=== PATIENT | female | born 1945 | race Caucasian/White ===

== ENCOUNTER → 2016-06-26 | Outpatient (CLI) | payer OTHER ==
[~2016-06-26] MED LIST: ACET-1138 PO; ALBINS INH; ALBU1AER9 INH; AMLO-110 PO; ASPEC325 PO; AUG0.05O4 TOP; BUPRTAB51 PO; CALCTAB5 PO; CARB100C2 PO; CHOL1000 PO; CLB100 PO; FRRG PO; HYZ/50125 PO; LORA-741 PO; MELA1TAB5 PO; OMEP40CA PO; PROLIA INJ; SPIR25TA PO; SYN100 PO; ULT50X PO
[2016-06-26 13:03] LABS: BASO ABS # 0.06 K/uL (0-0.2); COMPLETE YES; EOS % 4.4 %; HEMATOCRIT 37.2 % (37-47); IG% 0.2 %; LYMPH % 27.5 %; LYMPH ABS # 1.62 K/uL (1.2-3.4); MEAN CORPUSCULAR HEMOGLOBIN 30.9 pg (25-34); MEAN CORPUSCULAR HGB CONC 34.7 g/dl (32-36); MEAN PLATELET VOLUME 8.4 fL (7.4-10.4); MONO % 10.8 %; NEUT % 56.1 %; PLATELET COUNT 365 K/uL (130-400); RED BLOOD COUNT 4.18 M/uL (4.2-5.4)
[2016-06-26 13:15] LABS: ALT/SGPT 14 U/L (12-78); BLOOD UREA NITROGEN 17 mg/dl (7-18); BUN/CREATININE RATIO 22.1 (10-20); CALCIUM 9.2 mg/dl (8.5-10.1); CARBON DIOXIDE 26 mmol/L (21-32); CHLORIDE 98 mmol/L (98-107); CREATININE 0.77 mg/dl (0.60-1.20); GLUCOSE 80 mg/dl (70-99); POTASSIUM 3.4 mmol/L (3.5-5.1); SODIUM 134 mmol/L (136-145)
[2016-06-26 13:16] LABS: ALB/GLOB RATIO 1.1 (0.9-2); ALKALINE PHOSPHATASE 76 U/L (45-117); AST/SGOT 12 U/L (15-37)
== END | disposition home or self-care (01) ==
LOC: C.LABPBG 09:30
PROVIDERS: ATTEND Psychiatry & Neurology Neurology
DX: G40.209 Localization-related (focal) (partial) symptomatic epilepsy and epileptic syndromes with complex partial seizures, not intractable, without status epilepticus (principal)

== ENCOUNTER → 2016-12-28 | Outpatient (CLI) | payer OTHER | END | disposition home or self-care (01) | LOC: C.LABPBG 08:11 | PROVIDERS: ATTEND Psychiatry & Neurology Neurology | DX: R56.9 Unspecified convulsions (principal) ==

== ENCOUNTER 2017-03-26 10:53 | Emergency (ER) | payer OTHER ==
[~2017-03-26] VITALS: Ht 162.6 cm; Wt 68.1 kg
[2017-03-26 10:54] VITALS: TEMP 36.6; Ht 162.6 cm; Wt 68.1 kg
[2017-03-26] MEDS ORDERED: LEVO50TA PO (11:16)
[2017-03-26] MEDS ORDERED: SPR25 PO (11:16)
[2017-03-26] MEDS ORDERED: ALBINS/ INH (11:16)
[2017-03-26] MEDS ORDERED: BUPR-83 PO (11:16)
[2017-03-26] MEDS ORDERED: CALC600T37 PO (11:16)
[2017-03-26] MEDS ORDERED: ASPI81TA28 PO (11:16)
[2017-03-26] MEDS ORDERED: OMEP40CA41 PO (11:16)
[2017-03-26] MEDS ORDERED: ALBU18002 INH (11:16)
[2017-03-26] MEDS ORDERED: MELA3TAB PO (11:16)
[2017-03-26] MEDS ORDERED: AMLO-110 PO (11:16)
[2017-03-26] MEDS ORDERED: SYN100 PO (11:16)
[2017-03-26] MEDS ORDERED: CELE100C PO (11:16)
[2017-03-26] MEDS ORDERED: LOSA100T33 PO (11:16)
[2017-03-26] MEDS ORDERED: TGR100 PO (11:16)
--- NOTE | 2017-03-26 11:46 | DIAGNOSTIC IMAGING REPORT ---
L FEMUR 2 VIEWS ROUTINE CLINICAL HISTORY: Left femur pain status post trauma COMPARISON: Left hip x-ray performed the same day DISCUSSION: There are postsurgical changes of a total left knee arthroplasty. No acute fractures or dislocations are visualized. IMPRESSION: No acute fractures identified. Electronically signed by: Ramiro Pittman M.D. 03/26/2017 11:45 AM Dictated Date/Time: 03/26/2017 11:44 AM
--- NOTE | 2017-03-26 11:49 | DIAGNOSTIC IMAGING REPORT ---
PELVIS 1 OR 2 VIEW ROUTINE, L HIP UNILATERAL 2 VIEWS HISTORY: 71 years-old Female left pelvis pain s/p fall acute pelvic pain status post fall, most pronounced in the left COMPARISON: Left femur radiographs of same day TECHNIQUE: AP view of the pelvis with 2 views of the left hip FINDINGS: PELVIS: Bones are mildly demineralized. Mild to moderate degenerative changes of the bilateral femoral acetabular joints, pubic symphysis and SI joints. Partially imaged fusion hardware with prior discectomy at L4-L5. Vascular calcifications noted. No pelvic ring fracture. LEFT hip: Mild to moderate left hip osteoarthritis. No acute fracture or dislocation. No opaque foreign body. IMPRESSION: 1. No acute fracture or dislocation of the pelvis or left hip. 2. Degenerative changes as above. The above report was generated using voice recognition software. It may contain grammatical, syntax or spelling errors. Electronically signed by: Carlos Aguilar M.D. 03/26/2017 11:47 AM Dictated Date/Time: 03/26/2017 11:45 AM
--- NOTE | 2017-03-26 12:16 | EMERGENCY ROOM VISIT NOTE ---
ED Visit Note First contact with patient: 11:03 CHIEF COMPLAINT: Left Hip pain HISTORY OF PRESENT ILLNESS: This 71 year old female patient presents to the emergency department, ambulatory, with her family, complaining of pain in the left hip, pelvis, and femur. She states on March 03, she was getting dressed , when she tripped over her long skirt in front of her. She states she did fall and landed on hardwood floors on her left hip. The patient states she was feeling okay for a few days after that, but proximally 10 days ago, she was experiencing worsening pain. The pain is worse with standing, and she also gets pain into her femur which she describes as "muscle cramps". She states she is having difficulty finding a comfortable position. She states the pain is awakening her at night. The patient states sitting in a firm seat makes her symptoms worse, as well as standing up or rolling over. She states lying in one position does seem to help. She has been taking Tylenol 1000 mg once or twice per day if necessary for severe pain. She denies any weakness or paresthesias. She denies any bowel or bladder dysfunction. There has been no weakness or loss of balance. REVIEW OF SYSTEMS: A 10 system review of systems was performed with positives and pertinent negatives listed in the history of present illness. All other systems were reviewed and are negative. ALLERGIES: Codeine, morphine (but has taken Percocet successfully with Zofran), gabapentin, ropinirole MEDICATIONS: Albuterol, Norvasc, Wellbutrin, ASA, Carbamezepine, Celebrex, Hyzaar, Synthroid, Prilosec, Spironolactone PMH: HTN, osteoarthritis, psoriatic arthritis, seizures, hypothyroidism, asthma SOCIAL HISTORY: The patient lives locally with family. She denies drug, alcohol , tobacco use. PHYSICAL EXAM: VITALS: Vitals are noted on the nurse's note and reviewed by myself. Vital signs stable. GENERAL: This is a 71 yo white female, in no acute distress, nondiaphoretic, well-developed well-nourished. SKIN: The skin was without rashes, erythema, edema, or bruising. There is no tenting of the skin. Capillary reflex less than 2 seconds. NECK: Supple without nuchal rigidity. No lymphadenopathy. No thyromegaly. Cervical spine is nontender. No JVD. HEART: Regular rate and rhythm without murmurs gallops or rubs. LUNGS: Clear to auscultation bilaterally without wheezes, rales or rhonchi. No dullness to percussion. No retractions or accessory muscle use. ABDOMEN: Positive bowel sounds x 4. Normal tympanic percussion. Soft, nontender, without masses or organomegaly. Sarmiento sign negative. No guarding or rebound tenderness. MUSCULOSKELETAL: No muscle atrophy, erythema, or edema noted. Full range of motion in all extremities, however, there is significant tenderness of the left hip with flexion and external rotation. Tenderness of the left hip, pelvis, and femur noted on palpation. Normal gait. Strength 5/5 throughout. NEURO: Patient was alert and oriented to person place and time. Normal sensation to light and sharp touch. Deep tendon reflexes 2+ throughout. No focal neurological deficits. RADIOLOGY: L FEMUR 2 VIEWS ROUTINE CLINICAL HISTORY: Left femur pain status post trauma COMPARISON: Left hip x-ray performed the same day DISCUSSION: There are postsurgical changes of a total left knee arthroplasty. No acute fractures or dislocations are visualized. IMPRESSION: No acute fractures identified. Electronically signed by: Ramiro Pittman M.D. 03/26/2017 11:45 AM Dictated Date/Time: 03/26/2017 11:44 AM PELVIS 1 OR 2 VIEW ROUTINE, L HIP UNILATERAL 2 VIEWS HISTORY: 71 years-old Female left pelvis pain s/p fall acute pelvic pain status post fall, most pronounced in the left COMPARISON: Left femur radiographs of same day TECHNIQUE: AP view of the pelvis with 2 views of the left hip FINDINGS: PELVIS: Bones are mildly demineralized. Mild to moderate degenerative changes of the bilateral femoral acetabular joints, pubic symphysis and SI joints. Partially imaged fusion hardware with prior discectomy at L4-L5. Vascular calcifications noted. No pelvic ring fracture. LEFT hip: Mild to moderate left hip osteoarthritis. No acute fracture or dislocation. No opaque foreign body. IMPRESSION: 1. No acute fracture or dislocation of the pelvis or left hip. 2. Degenerative changes as above. The above report was generated using voice recognition software. It may contain grammatical, syntax or spelling errors. Electronically signed by: Carlos Aguilar M.D. 03/26/2017 11:47 AM Dictated Date/Time: 03/26/2017 11:45 AM PELVIS 1 OR 2 VIEW ROUTINE, L HIP UNILATERAL 2 VIEWS HISTORY: 71 years-old Female left pelvis pain s/p fall acute pelvic pain status post fall, most pronounced in the left COMPARISON: Left femur radiographs of same day TECHNIQUE: AP view of the pelvis with 2 views of the left hip FINDINGS: PELVIS: Bones are mildly demineralized. Mild to moderate degenerative changes of the bilateral femoral acetabular joints, pubic symphysis and SI joints. Partially imaged fusion hardware with prior discectomy at L4-L5. Vascular calcifications noted. No pelvic ring fracture. LEFT hip: Mild to moderate left hip osteoarthritis. No acute fracture or dislocation. No opaque foreign body. IMPRESSION: 1. No acute fracture or dislocation of the pelvis or left hip. 2. Degenerative changes as above. The above report was generated using voice recognition software. It may contain grammatical, syntax or spelling errors. Electronically signed by: Carlos Aguilar M.D. 03/26/2017 11:47 AM Dictated Date/Time: 03/26/2017 11:45 AM EMERGENCY DEPARTMENT COURSE: The patient was seen and evaluated as above. X- Rays were performed and reviewed by myself and radiologist. There were no acute bony abnormalities noted. I discussed these findings with the patient at bedside. I did offer pain medication several times throughout her visit to the ED, and she did decline. I provided her with a prescription for OxyIR and a prescription for Zofran to help with associated nausea. I did discuss the case with Dr. Garcia, who was in agreement with the assessment and plan. Discharge instructions were reviewed and the patient was discharged home in good condition. I attest that I have personally reviewed the patient's current medication list. Patient was found to have normal blood pressure on screening and does not require follow-up. DIFFERENTIAL DIAGNOSIS: Contusion, fracture, sprain, strain, osteoarthritis, osteoporosis, malignancy, and others DIAGNOSIS: Left Hip contusion, Left lower extremity contusion Problem List Medical Problems: (1) Arthritis Status: Chronic (2) Benign hypertension Status: Chronic (3) Benign paroxysmal positional vertigo Status: Chronic (4) Gastroesophageal reflux disease Status: Chronic (5) Hysterectomy Status: Chronic (6) Migraine Status: Chronic (7) Osteoporosis Status: Chronic Current/Historical Medications Scheduled Amlodipine (Norvasc), 5 MG PO DAILY Aspirin (Aspirin Ec), 81 MG PO DAILY Bupropion (Wellbutrin), 100 MG PO DAILY Calcium (Calcium), 1,200 MG PO DAILY Carbamazepine (Carbamazepine), 200 MG PO AMHS Celecoxib (Celebrex), 100 MG PO BID Hctz/Losartan (Hyzaar 12.5MG/100MG), 1 TAB PO DAILY Levothyroxine Sodium (Synthroid), 100 MCG PO 6XWK Levothyroxine Sodium (Synthroid), 50 MCG PO WK Melatonin (Melatonin), 6 MG PO HS Omeprazole (Prilosec), 40 MG PO QAM Omeprazole (Prilosec), 40 MG PO DAILY Ondasetron Odt (Zofran Odt), 4 MG SL Q6H Spironolactone (Aldactone), 25 MG PO QAM Spironolactone (Spironolactone), 25 MG PO DAILY Scheduled PRN Albuterol Sulf (Proventil 0.083% 2.5MG/3ML), 2.5 MG INH QID PRN for SOB/Wheezing Albuterol Sulfate (Proair Respiclick), 2 PUFFS INH Q6 PRN for SOB/Wheezing Oxycodone Ir (Roxicodone Ir), 1 TAB PO Q6H PRN for Pain Allergies Coded Allergies: Trinity Nut (Verified Allergy, Unknown, HIVES, 04/24/16) Codeine (Verified Allergy, Unknown, bile duct spasm per pt; GI upset, ) PERCOCET IS OK PER PT Ragweed (Verified Allergy, Unknown, INCREASES ASTHMA SYMPTOMS,SOB, ) Ropinirole (Verified Allergy, Unknown, cant sleep, 03/26/17) Morphine (Verified Adverse Reaction, Intermediate, "hot flash/ruq pain/ vomiting"-PERCOCET IS OK PER PT, 03/26/17) Gabapentin (Verified Adverse Reaction, Unknown, "SWELLING OF ANKLES AND WT GAIN", 03/26/17) Vital Signs Date Time Temp Pulse Resp B/P (MAP) Pulse Ox O2 Delivery O2 Flow Rate FiO2 03/26/17 12:24 66 136/71 98 03/26/17 10:54 36.6 88 20 149/78 97 Room Air Departure Information Impression Primary Impression: Contusion of left lower extremity Additional Impression: Contusion of left hip, initial encounter Dispostion Home / Self-Care Condition GOOD Prescriptions Ondasetron Odt (ZOFRAN ODT) 4 Mg Tab 4 MG SL Q6H for Nausea, #12 TAB Prov: Bhakti Santiago PA-C 03/26/17 Oxycodone Ir (Roxicodone Ir) 5 Mg Tab 1 TAB PO Q6H Y for Pain, #12 TAB For Initial Treatment Prov: Bhakti Santiago PA-C 03/26/17 Referrals Rgioberto Valdivia M.D. (PCP) Hans Gunderson, DO Patient Instructions ED Contusion Hip, My [facility] Additional Instructions ORTHOPEDIC INSTRUCTIONS: Oxycodone (OxyIR) 5mg: Take 1 pill every four to six hours as needed for breakthrough pain. Avoid alcohol, operating machinery or dangerous equipment, working on ladders or roofs, DRIVING, or situations where being under the influence may be dangerous. It is recommended to use an [id number] stool softener such as Colace, 100mg twice daily while taking this medication to avoid constipation. Use Zofran to help with nausea associated with narcotics. Acetaminophen(Tylenol) may be used for fever or pain. Use 1000mg every six hours as needed. Avoid using more than 4000mg in a 24 hour period. Ice compresses for 20 minutes at a time four times daily for 2-3 days. Use your walker to avoid significant weight-bearing until it becomes tolerable. Rest and elevate your injury. Return to the ER immediately for any numbness, tingling, severe pain, extreme swelling in the extremity or as needed. Call [facility], [phone], later this week, to arrange follow up for your injury. Follow-up with your primary care physician in 2 to 3 days for a recheck of your current condition. Problem Qualifiers Primary Impression: Contusion of left lower extremity Encounter type: initial encounter Qualified Codes: S80.12XA - Contusion of left lower leg, initial encounter
[2017-03-26 12:24] VITALS: BP 136/71; PULSE 66; O2SAT 98
[2017-03-26] MEDS ORDERED: OXYC1TAB3 PO (13:09)
[2017-03-26] MEDS ORDERED: ONDA4TAB10 SL (13:09)
== END 2017-03-26 12:26 | disposition home or self-care (01) ==
LOC: C.EDB 10:54 → C.EDD 12:26
DX: S70.02XA Contusion of left hip, initial encounter (principal); S80.12XA Contusion of left lower leg, initial encounter; W01.0XXA Fall on same level from slipping, tripping and stumbling without subsequent striking against object, initial encounter; I10 Essential (primary) hypertension; E03.9 Hypothyroidism, unspecified; J45.909 Unspecified asthma, uncomplicated; G40.909 Epilepsy, unspecified, not intractable, without status epilepticus; M19.90 Unspecified osteoarthritis, unspecified site; F17.200 Nicotine dependence, unspecified, uncomplicated; Z90.710 Acquired absence of both cervix and uterus; Z79.82 Long term (current) use of aspirin; Z79.899 Other long term (current) drug therapy; Z88.5 Allergy status to narcotic agent; Z88.8 Allergy status to other drugs, medicaments and biological substances; Z91.018 Allergy to other foods; Z91.09 Other allergy status, other than to drugs and biological substances

== ENCOUNTER → 2017-06-20 | Outpatient (CLI) | payer OTHER ==
[~2017-06-20] MED LIST changes: -ACET-1138 PO; -ALBINS INH; +ALBINS/ INH; +ALBU18002 INH; -ALBU1AER9 INH; -ASPEC325 PO; +ASPI81TA28 PO; -AUG0.05O4 TOP; +BUPR-83 PO; -BUPRTAB51 PO; +CALC600T37 PO; -CALCTAB5 PO; -CARB100C2 PO; +CELE100C PO; -CHOL1000 PO; -CLB100 PO; -FRRG PO; -HYZ/50125 PO; +LEVO50TA PO; -LORA-741 PO; +LOSA100T33 PO; -MELA1TAB5 PO; +MELA3TAB PO; +OMEP40CA41 PO; +ONDA4TAB10 SL; +OXYC1TAB3 PO; -PROLIA INJ; +SPR25 PO; +TGR100 PO; -ULT50X PO
[2017-06-20 17:33] LABS: BASO % 1.2 %; BASO ABS # 0.06 K/uL (0-0.2); EOS % 5.5 %; EOS ABS # 0.28 K/uL (0-0.5); HEMATOCRIT 34.4 % (37-47); HEMOGLOBIN 12.1 g/dL (12.0-16.0); LYMPH % 36.7 %; LYMPH ABS # 1.88 K/uL (1.2-3.4); MEAN CELL VOLUME 89.1 fL (80-100); MEAN CORPUSCULAR HEMOGLOBIN 31.3 pg (25-34); MEAN CORPUSCULAR HGB CONC 35.2 g/dl (32-36); MEAN PLATELET VOLUME 8.2 fL (7.4-10.4); MONO % 8.6 %; MONO ABS # 0.44 K/uL (0.11-0.59); NEUT ABS # 2.46 K/uL (1.4-6.5); PLATELET COUNT 313 K/uL (130-400); RED CELL DISTRIBUTION WIDTH CV 13.2 % (11.5-14.5); WHITE BLOOD COUNT 5.12 K/uL (4.8-10.8)
[2017-06-20 17:51] LABS: ALBUMIN 3.8 gm/dl (3.4-5.0); ALT/SGPT 21 U/L (12-78); AST/SGOT 14 U/L (15-37); BLOOD UREA NITROGEN 15 mg/dl (7-18); CALCIUM 8.8 mg/dl (8.5-10.1); CARBON DIOXIDE 27 mmol/L (21-32); CREATININE 0.81 mg/dl (0.60-1.20); GLUCOSE 82 mg/dl (70-99); POTASSIUM 3.5 mmol/L (3.5-5.1); SODIUM 128 mmol/L (136-145)
[2017-06-20 17:53] LABS: ALKALINE PHOSPHATASE 43 U/L (45-117); TOTAL PROTEIN 6.8 gm/dl (6.4-8.2)
== END | disposition home or self-care (01) ==
LOC: C.LABPBG 15:08
PROVIDERS: ATTEND Psychiatry & Neurology Neurology
DX: G40.209 Localization-related (focal) (partial) symptomatic epilepsy and epileptic syndromes with complex partial seizures, not intractable, without status epilepticus (principal)

== ENCOUNTER → 2017-09-23 | Outpatient (CLI) | payer OTHER ==
[2017-09-23 13:09] LABS: BASO % 0.9 %; BASO ABS # 0.04 K/uL (0-0.2); EOS % 6.2 %; EOS ABS # 0.27 K/uL (0-0.5); HEMATOCRIT 36.2 % (37-47); HEMOGLOBIN 12.3 g/dL (12.0-16.0); LYMPH % 34.5 %; MEAN CELL VOLUME 89.4 fL (80-100); MEAN CORPUSCULAR HEMOGLOBIN 30.4 pg (25-34); MONO % 8.7 %; MONO ABS # 0.38 K/uL (0.11-0.59); NEUT % 49.7 %; NEUT ABS # 2.16 K/uL (1.4-6.5); PLATELET COUNT 307 K/uL (130-400); RED CELL DISTRIBUTION WIDTH CV 13.9 % (11.5-14.5); RED CELL DISTRIBUTION WIDTH SD 45.8 fL (36.4-46.3); WHITE BLOOD COUNT 4.35 K/uL (4.8-10.8)
[2017-09-23 14:07] LABS: ALBUMIN 3.6 gm/dl (3.4-5.0); ALT/SGPT 20 U/L (12-78); AST/SGOT 15 U/L (15-37); BLOOD UREA NITROGEN 18 mg/dl (7-18); CALCIUM 8.8 mg/dl (8.5-10.1); CARBON DIOXIDE 28 mmol/L (21-32); GLUCOSE 99 mg/dl (70-99); POTASSIUM 3.9 mmol/L (3.5-5.1); SODIUM 133 mmol/L (136-145)
[2017-09-23 14:10] LABS: ALKALINE PHOSPHATASE 44 U/L (45-117); TOTAL PROTEIN 6.7 gm/dl (6.4-8.2)
== END | disposition home or self-care (01) ==
LOC: C.LABPBG 08:43
PROVIDERS: ATTEND Psychiatry & Neurology Neurology
DX: G40.209 Localization-related (focal) (partial) symptomatic epilepsy and epileptic syndromes with complex partial seizures, not intractable, without status epilepticus (principal)

== ENCOUNTER 2019-06-17 21:43 | Inpatient (IN) ==
[2019-06-17 22:11] LABS: Basophils # (auto) 0.03 K/uL (0-0.2); Basophils % (auto) 0.9 %; Eosinophils # (auto) 0.14 K/uL (0-0.5); Hematocrit (blood only) 34.8 % (37-47); Hemoglobin 12.5 g/dL (12.0-16.0); Immature Granulocytes # (auto) 0.01 K/uL (0.00-0.02); Immature Granulocytes % (auto) 0.3 %; Lymphocytes # (auto) 0.66 K/uL (1.2-3.4); Lymphocytes % (auto) 18.8 %; Mean Corpuscular Hgb Conc 35.9 g/dL (32-36); Mean Corpuscular Volume 86.4 fL (80-100); Mean Platelet Volume 7.6 fL (7.4-10.4); Monocytes # (auto) 0.67 K/uL (0.11-0.59); Monocytes % (auto) 19.1 %; Neutrophils % (auto) 56.9 %; Platelet Count 282 K/uL (130-400); RDW Coefficient of Variation 12.8 % (11.5-14.5); RDW Standard Deviation 41.1 fL (36.4-46.3); Red Blood Count 4.03 M/uL (4.2-5.4); White Blood Count 3.51 K/uL (4.8-10.8)
[2019-06-17 22:22] LABS: Alanine Aminotransferase 15 U/L (12-78); Albumin Level 3.6 gm/dl (3.4-5.0); Aspartate Aminotransferase 12 U/L (15-37); BUN Creatinine Ratio 25.4 (10-20); Blood Urea Nitrogen 20 mg/dl (7-18); Calcium 8.8 mg/dl (8.5-10.1); Carbon Dioxide 28 mmol/L (21-32); Chloride 98 mmol/L (98-107); Creatinine Clr Calc Pharmacy 62.9 ml/min; Est GFR (African American) 84.2; Est GFR (Non-African American) 72.6; Glucose 128 mg/dl (70-99); Magnesium 2.2 mg/dl (1.8-2.4); Potassium 3.4 mmol/L (3.5-5.1); Sodium 132 mmol/L (136-145)
[2019-06-17 22:23] LABS: Partial Thromboplastin Ratio 0.9; Partial Thromboplastin Time 24.2 Seconds (21.0-31.0); Prothrombin Time 10.2 Seconds (9.0-12.0)
[2019-06-17 22:26] LABS: Albumin Globulin Ratio 1.1 (0.9-2); Alkaline Phosphatase 47 U/L (45-117); Bilirubin,Total 0.2 mg/dl (0.2-1); Globulin 3.4 gm/dl (2.5-4.0); Troponin I < 0.015 ng/ml (0-0.045)
--- NOTE | 2019-06-17 22:30 | XRay Report ---
XR chest 1V portable CLINICAL HISTORY: L ARM NUMBNESS COMPARISON STUDY: Chest radiograph April 11, 2016. FINDINGS: Lung volumes are normal. Lungs are clear. There is no pneumothorax or pleural effusion. Car diac size is normal. Mediastinal contours are normal. There is no evidence for pulmonary edema. Incid ental note is made of cholecystectomy clips. IMPRESSION: No acute cardiopulmonary findings. ACT 112: Negative or not required by law. Electronically signed by: Harlan Larkin M.D. 06/17/2019 10:29 PM
--- NOTE | 2019-06-17 22:33 | CT Scan Report ---
CT OF THE HEAD WITHOUT CONTRAST CLINICAL HISTORY: Stroke evaluation COMPARISON STUDY: Head CT October 22, 2012. MRI of the brain November 03, 2014. CT DOSE: 537.48 mGy.cm TECHNIQUE: Helical axial images of the head were obtained without IV contrast. Automated exposure con trol was utilized for the study. A dose lowering technique was utilized adhering to the principles o f ALARA. FINDINGS: No acute intracranial hemorrhage, midline shift or mass effect is present. The ventricular system is unremarkable. The basilar cisterns are patent. No extra-axial collections are present. Ther e are no findings to suggest acute dural sinus thrombosis or acute territorial infarct. No significan t calvarial abnormalities are present. Visualized portions of the sinuses and mastoid air cells are c lear. White matter hypodensity suggests small vessel disease. IMPRESSION: No acute intracranial findings. ACT 112: Negative or not required by law. Electronically signed by: Harlan Larkin M.D. 06/17/2019 10:31 PM
[2019-06-17] MEDS ORDERED: HydrALAZINE HCL 20 MG/ML VIAL IV STA (22:57)
--- NOTE | 2019-06-17 23:58 | Emergency Department Note ---
Entered by Renae Cantrell acting as a scribe for Sudhakar Campa DO History of Present Illness General Chief complaint: Neuro Symptoms/Deficit Stated complaint: L ARM TINGLING Source: patient History of Present Illness Onset (ago): hour(s) (1.5) Location: upper extremity and left Pain Consistency: + constant Quality: + other (tingling and numbness) Associated symptoms: + denies other symptoms (diarrhea, weakness in arms and legs, changes in vision, dizziness), + headaches and + other (fatigue); no loss of appetite and no nausea/vomiting The patient is a 73 year old female who presents to the Emergency Room with complaints of constant tingling and numbness in her left arm beginning 1.5 hours ago. The patient reports a headache and fatigue. The patient denies nausea, v omiting, diarrhea, weakness in the arms or legs, loss of appetite, changes in vision, and any new dizziness. The patient reports a history of vertigo and notes she goes to therapy three times a week. She states she took her blood pressure medication this morning. She denies any history of documented stroke. She notes taking aspirin. Home Medications Home Medications Medication Instructions Recorded Confirmed Type albuterol sulfate INHALATION .INHALE PUFFS PRN ml 12/15/18 04/23/19 History albuterol sulfate 90 mcg/actuation INHALATION .INHALE PUFFS PRN gm 12/15/18 04/23/19 History aerosol inhaler amlodipine 5 mg tablet PO .TAKE 1 TABLET DAILY. tab 12/15/18 04/23/19 History bupropion HCl 300 mg 24 hr tablet, PO .TAKE 1 TABLET DAILY. tab 12/15/18 04/23/19 History extended release calcium carbonate 600 mg calcium 2 PO .TAKE 2 TABLET Daily tab 12/15/18 04/23/19 History (1,500 mg) tablet celecoxib 100 mg capsule PO .TAKE 1 CAPSULE TWICE cap 12/15/18 04/23/19 History cholecalciferol (vitamin D3) 25 1,000 units PO DAILY cap 12/15/18 04/23/19 History mcg (1,000 unit) capsule denosumab SQ 12/15/18 04/23/19 History levothyroxine 100 mcg tablet 100 mcg PO .COMPLEX tab 12/15/18 04/23/19 History losartan 100 PO .TAKE 1 TABLET DAILY. tab 12/15/18 04/23/19 History mg-hydrochlorothiazide 25 mg tablet omeprazole 40 mg capsule,delayed 1 PO .TAKE 1 CAPSULE DAILY cap 12/15/18 04/23/19 History release spironolactone 25 mg tablet PO .TAKE 1 TABLET DAILY. tab 12/15/18 04/23/19 History carbamazepine 100 mg chewable 300 mg PO BID 90 Days #540 tab 05/26/19 Rx tablet Aspir-81 81 mg PO DAILY 06/17/19 06/17/19 History Allergies Allergy/AdvReac Type Severity Reaction Status Date / Time codeine Allergy Unknown bile duct Verified 04/23/19 09:41 spasm per pt; GI upset nut - unspecified Allergy Unknown HIVES Verified 04/23/19 09:41 ragweed pollen Allergy Unknown INCREASES Verified 04/23/19 09:41 ASTHMA SYMPTOMS,SOB ropinirole Allergy Unknown cant sleep Verified 04/23/19 09:41 morphine AdvReac Intermediate "hot Verified 04/23/19 09:41 flash/ruq pain/vomiting"-PERCOCET IS OK PER PT gabapentin AdvReac Unknown "SWELLING Verified 04/23/19 09:41 OF ANKLES AND WT GAIN" Past Med/Surg History Medical History Benign paroxysmal positional vertigo (Acute 10/22/12) Chest pain (Acute 01/16/14) Complex partial seizure (Chronic) Hypertension (Acute) Lumbar stenosis (Acute 05/19/14) Migraine (Acute 10/22/12) Surgical History History of back surgery History of cholecystectomy History of knee surgery History of oral surgery Family History Father Stroke Dementia Myocardial infarction Mother Diabetes Stroke Hypertension Social History Feels Safe at Home: Yes Smoking Status: Never smoker Review of Systems See HPI for pertinent positives & negatives. and A total of 10 systems reviewed and were otherwise negative Physical Exam Vital Signs Vital Signs - 24 hr 06/17/19 21:43 06/17/19 22:00 06/17/19 22:07 Temperature 37.1 C Temperature Source Oral Pulse Rate 71 Pulse Rate from SpO2 Sensor 67 63 Respiratory Rate 20 Respiratory Effort / Characteristics Non-Labored Respiratory Depth Normal Respiratory Pattern Regular Blood Pressure 203/97 H 192/97 H Blood Pressure Mean 132 114 Pulse Oximetry 99 98 98 Oxygen Delivery Method Room Air Sepsis Recent Fever Within 48 Hours No Sepsis New/Unexplained Change in Mental Status No Sepsis Action Taken by Nursing No Action Required 06/17/19 22:31 Temperature Temperature Source Pulse Rate 61 Pulse Rate from SpO2 Sensor 61 Respiratory Rate 24 Respiratory Effort / Characteristics Respiratory Depth Respiratory Pattern Blood Pressure 191/96 H Blood Pressure Mean 140 Pulse Oximetry 99 Oxygen Delivery Method Sepsis Recent Fever Within 48 Hours Sepsis New/Unexplained Change in Mental Status Sepsis Action Taken by Nursing GENERAL: sitting up in bed, disheveled, non-toxic EYE EXAM: normal conjunctiva, PERRL and EOM's intact OROPHARYNX: no exudate, no erythema, lips, buccal mucosa, and tongue normal and mucous membranes are moist NECK: supple, no nuchal rigidity, no adenopathy, non-tender LUNGS: Clear to auscultation. Normal chest wall mechanics HEART: no murmurs, S1 normal and S2 normal ABDOMEN: abdomen soft, non-tender, normo-active bowel sounds, no masses, no rebound or guarding. BACK: Back is symmetrical on inspection and there is no deformity, no midline tenderness, no CVA tenderness. SKIN: no rashes and no bruising UPPER EXTREMITIES: upper extremities are grossly normal. LOWER EXTREMITIES: No pitting edema. NEURO EXAM: Normal sensorium, cranial nerves II-XII intact, normal speech, no weakness of arms, no weakness of legs. No drift. Finger to nose intact. Gross sensation intact. Rapid alternating movements of upper extremities and heel to de la torre movements intact. Course Course ED COURSE: Vital signs were reviewed and showed hypertension. The patients medical record was reviewed The above diagnostic studies were performed and reviewed. ED treatments and interventions as stated above. 2144: The patient was evaluated in room B02. A complete history and physical examination was performed. 2299: I spoke with Dr. Collins - Neurology who recommends the patient be further evaluated. 2314: Upon reevaluation, the patient is resting comfortably. I discussed my findings with the patient and she understands and agrees with the treatment plan. Based on the patients age, coexisting illnesses, exam and lab findings the decision to treat as an inpatient was made. I reviewed the patient's case with Dr. [facility] Hospitalist who will evaluate the patient for further management. The patient remained stable while under my care. The patient will be evaluated for further management. Medical Decision Making Differential Diagnosis Differential Diagnosis includes but is not limited to ischemic Stroke, hemorrhagic stroke, bells palsy, mass, neoplasm, migraine headache, seizure, subarachnoid hemorrhage, TIA, and transient global amnesia. Medical Records Attestation: I reviewed the patient's medical records. Home Medications Current Medication List: was personally reviewed by me Laboratory Data Attestation: I reviewed the patient's lab results. Result diagrams: 06/17/19 21:52 06/17/19 21:52 Lab Results 06/17/19 06/17/19 06/17/19 Range/Units 21:52 21:52 21:52 WBC 3.51 L (4.8-10.8) K/uL RBC 4.03 L (4.2-5.4) M/uL Hgb 12.5 (12.0-16.0) g/dL Hct 34.8 L (37-47) % MCV 86.4 (80-100) fL MCH 31.0 (25-34) pg MCHC 35.9 (32-36) g/dL RDW Std Deviation 41.1 (36.4-46.3) fL RDW Coeff of Sameer 12.8 (11.5-14.5) % Plt Count 282 (130-400) K/uL MPV 7.6 (7.4-10.4) fL Immature Gran % (Auto) 0.3 % Neut % (Auto) 56.9 % Lymph % (Auto) 18.8 % [place] % (Auto) 19.1 % Eos % (Auto) 4.0 % Baso % (Auto) 0.9 % Immature Gran # (Auto) 0.01 (0.00-0.02) K/uL Neut # (Auto) 2.00 (1.4-6.5) K/uL Lymph # (Auto) 0.66 L (1.2-3.4) K/uL [place] # (Auto) 0.67 H (0.11-0.59) K/uL Eos # (Auto) 0.14 (0-0.5) K/uL Baso # (Auto) 0.03 (0-0.2) K/uL PT 10.2 (9.0-12.0) Seconds INR 1.0 (0.9-1.1) APTT 24.2 (21.0-31.0) Seconds PTT Ratio 0.9 Sodium 132 L (136-145) mmol/L Potassium 3.4 L (3.5-5.1) mmol/L Chloride 98 (98-107) mmol/L Carbon Dioxide 28 (21-32) mmol/L Anion Gap 6.0 (3-11) BUN 20 H (7-18) mg/dl Creatinine 0.80 (0.6-1.2) mg/dl Est Cr Clr Drug Dosing 62.9 ml/min Est GFR ( Amer) 84.2 Est GFR (Non-Af Amer) 72.6 BUN/Creatinine Ratio 25.4 H (10-20) Glucose 128 H (70-99) mg/dl POC Glucose (70-99) mg/dl Calcium 8.8 (8.5-10.1) mg/dl Magnesium 2.2 (1.8-2.4) mg/dl Total Bilirubin 0.2 (0.2-1) mg/dl AST 12 L (15-37) U/L ALT 15 (12-78) U/L Alkaline Phosphatase 47 (45-117) U/L Troponin I < 0.015 (0-0.045) ng/ml Total Protein 7.0 (6.4-8.2) gm/dl Albumin 3.6 (3.4-5.0) gm/dl Globulin 3.4 (2.5-4.0) gm/dl Albumin/Globulin Ratio 1.1 (0.9-2) Blood Type Antibody Screen 06/17/19 06/17/19 Range/Units 22:11 22:16 WBC (4.8-10.8) K/uL RBC (4.2-5.4) M/uL Hgb (12.0-16.0) g/dL Hct (37-47) % MCV (80-100) fL MCH (25-34) pg MCHC (32-36) g/dL RDW Std Deviation (36.4-46.3) fL RDW Coeff of Sameer (11.5-14.5) % Plt Count (130-400) K/uL MPV (7.4-10.4) fL Immature Gran % (Auto) % Neut % (Auto) % Lymph % (Auto) % [place] % (Auto) % Eos % (Auto) % Baso % (Auto) % Immature Gran # (Auto) (0.00-0.02) K/uL Neut # (Auto) (1.4-6.5) K/uL Lymph # (Auto) (1.2-3.4) K/uL [place] # (Auto) (0.11-0.59) K/uL Eos # (Auto) (0-0.5) K/uL Baso # (Auto) (0-0.2) K/uL PT (9.0-12.0) Seconds INR (0.9-1.1) APTT (21.0-31.0) Seconds PTT Ratio Sodium (136-145) mmol/L Potassium (3.5-5.1) mmol/L Chloride (98-107) mmol/L Carbon Dioxide (21-32) mmol/L Anion Gap (3-11) BUN (7-18) mg/dl Creatinine (0.6-1.2) mg/dl Est Cr Clr Drug Dosing ml/min Est GFR ( Amer) Est GFR (Non-Af Amer) BUN/Creatinine Ratio (10-20) Glucose (70-99) mg/dl POC Glucose 127 H (70-99) mg/dl Calcium (8.5-10.1) mg/dl Magnesium (1.8-2.4) mg/dl Total Bilirubin (0.2-1) mg/dl AST (15-37) U/L ALT (12-78) U/L Alkaline Phosphatase (45-117) U/L Troponin I (0-0.045) ng/ml Total Protein (6.4-8.2) gm/dl Albumin (3.4-5.0) gm/dl Globulin (2.5-4.0) gm/dl Albumin/Globulin Ratio (0.9-2) Blood Type A Positive Antibody Screen NEGATIVE Imaging Data Radiologist's Impression: Radiology results as stated below per my review and the radiologist's interpretation: CT OF THE HEAD WITHOUT CONTRAST CLINICAL HISTORY: Stroke evaluation COMPARISON STUDY: Head CT October 22, 2012. MRI of the brain November 03, 2014. CT DOSE: 537.48 mGy.cm TECHNIQUE: Helical axial images of the head were obtained without IV contrast. Automated exposure control was utilized for the study. A dose lowering technique was utilized adhering to the principles of ALARA. FINDINGS: No acute intracranial hemorrhage, midline shift or mass effect is present. The ventricular system is unremarkable. The basilar cisterns are patent. No extra-axial collections are present. There are no findings to suggest acute dural sinus thrombosis or acute territorial infarct. No significant calvarial abnormalities are present. Visualized portions of the sinuses and mastoid air cells are clear. White matter hypodensity suggests small vessel disease. IMPRESSION: No acute intracranial findings. ACT 112: Negative or not required by law. Electronically signed by: Harlan Larkin M.D. 06/17/2019 10:31 PM XR chest 1V portable CLINICAL HISTORY: L ARM NUMBNESS COMPARISON STUDY: Chest radiograph April 11, 2016. FINDINGS: Lung volumes are normal. Lungs are clear. There is no pneumothorax or pleural effusion. Cardiac size is normal. Mediastinal contours are normal. There is no evidence for pulmonary edema. Incidental note is made of cholecystectomy clips. IMPRESSION: No acute cardiopulmonary findings. ACT 112: Negative or not required by law. Electronically signed by: Harlan Larkin M.D. 06/17/2019 10:29 PM ECG Data Attestation: I personally reviewed and interpreted this ECG as follows: Indication: + other (tingling and numbness) Rate (beats per minute): 66 Rhythm: + sinus rhythm ECG Intervals/blocks: + Normal QT-c ECG [place]: + Normal ECG Findings: + Q waves (Septal); no PVCs Comparison ECG Date: from (04/11/16 ) Change: the following changes noted (V2 is new ) Additional Comments: Compared to 01/17/2014 - no change Blood Pressure Blood Pressure Findings: Elevated blood pressure Blood Pressure Disposition: further management by hospitalist [facility] Narrative Patient is a 33-year-old female who presents the ER for paresthesias of the left upper extremity. IV was established blood work was obtained and shows mild leukopenia. No significant anemia. INR was unremarkable. BMP with mild hypo- natremia. LFTs bilirubin troponin was negative. CT head was negative. Completely neurologically intact. Hypertensive in the low 200s. Patient was given IV hydralazine. Updated bedside. Did discuss with neurology. Again no focal deficit on exam. Do favor that this is likely hypertensive urgency versus stroke. Patient was discussed with the hospitalist for observation. Impression & Plan Hypertensive urgency, Paresthesia, Dizziness Discharge Plan Visit Data Chief Complaint: Neuro Symptoms/Deficit Stated Complaint: L ARM TINGLING ED Provider: Sudhakar Campa Discharge Problem: Hypertensive urgency, Paresthesia, Dizziness Patient Disposition: Being Evaluated by Hospitalist Forms Stand Alone Forms: My [facility] Prescriptions Prescriptions: No Action carbamazepine 100 mg tablet,chewable 300 mg PO BID 90 Days Qty: 540 RF: 1 albuterol sulfate 90 mcg/actuation HFA aerosol inhaler inhalation .INHALE PUFFS PRN RF: 0 amlodipine 5 mg tablet PO .TAKE 1 TABLET DAILY. RF: 0 omeprazole 40 mg capsule,delayed release(DR/EC) 1 PO .TAKE 1 CAPSULE DAILY RF: 0 spironolactone 25 mg tablet PO .TAKE 1 TABLET DAILY. RF: 0 levothyroxine 100 mcg tablet 100 mcg PO .COMPLEX RF: 0 losartan-hydrochlorothiazide 100-25 mg tablet PO .TAKE 1 TABLET DAILY. RF: 0 celecoxib 100 mg capsule PO .TAKE 1 CAPSULE TWICE RF: 0 denosumab SQ RF: 0 albuterol sulfate 2.5 mg /3 mL (0.083 %) solution for nebulization inhalation .INHALE PUFFS PRN RF: 0 calcium carbonate 600 mg calcium (1,500 mg) tablet 2 PO .TAKE 2 TABLET Daily RF: 0 cholecalciferol (vitamin D3) 1,000 unit capsule 1,000 units PO DAILY RF: 0 bupropion HCl 300 mg tablet extended release 24 hr PO .TAKE 1 TABLET DAILY. RF: 0 Aspir-81 81 mg 81 mg PO DAILY RF: 0 Referrals Referrals: Rigoberto Valdivia MD [Primary Care Provider] - The scribe's documentation has been prepared under my direction and personally reviewed by me in its entirety. I confirm that the note above accurately reflects all work, treatment, procedures, and medical decision making performed by me.
[2019-06-18] MEDS ORDERED: POLYETHYLENE (MIRALAX) 17 GM PACK PO PRN (00:37)
[2019-06-18] MEDS ORDERED: SODIUM CHLORIDE 0.9% 1000ML 1,000 ML IV SCH (00:37)
[2019-06-18] MEDS ORDERED: PHARMACIST DISCHARGE MED REC CONSULT PRN (00:37)
[2019-06-18] MEDS ORDERED: ACETAMINOPHEN 325 MG TAB PO PRN (00:37)
[2019-06-18] MEDS ORDERED: ONDANSETRON INJ 2 MG/ML 2 ML VIAL IV PRN (00:37)
[2019-06-18] MEDS ORDERED: NITROGLYCERIN SL 0.4 MG/TAB TAB SL PRN (00:37)
[2019-06-18] MEDS ORDERED: ALBUTEROL HFA 8 GM INHALER INH PRN (00:37)
[2019-06-18] MEDS ORDERED: ALBUTEROL 0.083% NEBU SOLN 3 ML VIAL INH PRN (00:37)
[2019-06-18] MEDS ORDERED: HydrALAZINE HCL 20 MG/ML VIAL IV PRN (00:37)
[2019-06-18] MEDS ORDERED: LORazepam 0.5 MG/1 ML VIAL IV ONE (02:00)
[2019-06-18] MEDS ORDERED: GADOBUTROL 65ML VIAL IV PRN (02:50)
--- NOTE | 2019-06-18 02:52 | History and Physical Report ---
DATE OF ADMISSION: 06/17/2019 CHIEF COMPLAINT: Stroke-like symptoms. HISTORY OF PRESENT ILLNESS: This is a 73-year-old female with past medical history significant for hypothyroidism, metabolic syndrome, mild persistent asthma, allergic rhinitis, primary hypertension, GERD, generalized osteoarthrosis and osteoporosis, degenerative disc disease, complex partial seizures, psoriasis, psoriatic arthropathy, generalized anxiety disorder, periodic limb movement disorder. The patient since her a year ago she lives alone, ambulates with the help of cane. Daughter is in the room. She is having balance issues since about 1 month and about 2 weeks ago she is having vertigo. She is following with a neurologist and also with PT. She gets vertigo on and off, but since last 2 weeks, somewhat more worse and she is feeling somewhat dizzy and today around 8:30 p.m., she noticed tingliness in her left arm, then also somewhat numbness but there is no loss of strength. At that time her blood pressure was running high, so she was brought into the ER. In the ER around 9:30,her symptoms were still present, blood pressure is high. The Er physician notified her neurologist detonator assembler. Her blood pressure was in 200s, IV hydralazine was given, the blood pressure is better now. Symptoms resolved. Denies any dysarthria or dysphagia. Currently, resting comfortable and hemodynamically stable. She has some headache, but no blurred visions, no earache, no runny nose, no sore throat, no cough, no dysphagia, no odynophagia. Appetite is not that great. Not eating much. When her , she lost some weight, but she gained some of it back. Does not sleep well. Uses Tegretol and melatonin helps her to sleep little bit better. No sweating. No fever or chills. She always feels somewhat cold. No nausea, no vomiting, no chest pain or shortness of breath. No abdominal pain. Normal bowel and bladder movements. No blood in the stools or black stools. No hematuria or burning micturition, no swelling in the legs, no rash. She says she is somewhat bruising easily lately and attributes it to her old age. ALLERGIES: REQUIP, CODEINE, MORPHINE, NEURONTIN. PAST MEDICAL HISTORY: As mentioned above. PAST SURGICAL HISTORY: Bilateral total knee arthroplasty, carpal tunnel surgery, on right side, cholecystectomy, open, colonoscopy, decompression of lumbar spine surgery in 2015, cataract surgery, removal of the pelvic structure. MEDICATIONS: The patient is on amlodipine 5 mg p.o. daily, levothyroxine 100 mcg p.o. daily, she takes 100 mcg daily except 50 mcg on Saturday, omeprazole 40 mg p.o. daily, spironolactone 25 mg p.o. daily, losartan/hydrochlorothiazide 100/25 mg 1 tablet daily, Wellbutrin-XL 300 mg p.o. daily, Celebrex 100 mg p.o. b.i.d., Ativan 0.5 mg p.r.n., which she currently not taking, albuterol nebulization every 6 hours p.r.n., Prolia 60 mg under skin once, ProAir HFA 2 puffs every 6 hours p.r.n., Tegretol 200 mg b.i.d., vitamin D 1000 units p.o. daily, aspirin enteric coated 81 mg p.o. daily, calcium plus D 1 tablet b.i.d. FAMILY HISTORY: Significant for daughter has breast cancer. Brother has prostate and kidney cancer and lymphoma. Brother has diabetes, hypertension. Mother of stroke. Sister had thyroid disorder. SOCIAL HISTORY: . Lives alone currently. No smoking, no alcohol, no drug use. REVIEW OF SYMPTOMS: As per HPI. Rest of review of symptoms are negative. PHYSICAL EXAMINATION: GENERAL: The patient is of moderate build, not in acute distress. VITAL SIGNS: Temperature 37.1, pulse 61, respiratory rate 18, blood pressure 191/96, oxygen 97% room air. HEENT: No pallor, no icterus. Pupils equal, round, reactive to light. NECK: No JVD, no neck masses, no carotid bruits. CARDIOVASCULAR: S1, S2 heard, regular rate and rhythm, no murmur, no gallop. RESPIRATORY SYSTEM: Normal AP diameter. No accessory muscle use. No wheezing, no crackles. ABDOMEN: Soft, bowel sounds present. Nontender, no distention. CENTRAL NERVOUS SYSTEM: Alert and oriented. Cranial nerves II-XII grossly intact. Power 5/5 in all extremities. Sensation is intact, position sense intact. No pronator drift. Coordination of movements normal. [id number] test normal. [id number]-we-hgnf test normal. Babinski negative. EXTREMITIES: No edema, no erythema. LABORATORY DATA: WBC 3.5, hemoglobin 12.5, hematocrit 34.8, platelets 282. PT 10.2, INR 1, APTT 24.2. Sodium 132, potassium 3.4, chloride 98, bicarbonate 28, BUN 20, creatinine 0.8, serum glucose 128, calcium 8.8, magnesium 2.2, total bilirubin 0.2, AST 12, ALT 15, alkaline phosphatase 47. Troponin I less than 0.015. CT of the head, no acute intracranial findings. Chest x-ray, no acute cardiopulmonary findings. EKG: Normal sinus rhythm with rate of 66, no significant change from previous EKG. ASSESSMENT AND PLAN: This is a 73-year-old female who presents with stroke-like symptoms. 1. Stroke-like symptoms with tingliness and numbness in the left upper extremity which got resolved now. Initial CT of the head negative. Blood pressure was high when she came in, possibly secondary to hypertensive urgency, improved with IV hydralazine. Will do the full stroke workup with MRI scan of the head, echo and carotid Dopplers. Neurology consult in a.m. Speech evaluation, PT/OT evaluation and neuro checks. Monitor in tele floor. 2. Hypertensive urgency. The patient is on amlodipine, losartan/hydrochlorothiazide, spironolactone at home which we will continue. We will place on IV hydralazine p.r.n., monitor the blood pressure and adjust medications. 4. History of complex partial seizures: On Tegretol, which she will continue with new input. 5. Hypothyroidism. Continue Synthroid. 6. Gastroesophageal reflux disease: Continue PPI. 7. Depression, generalized anxiety disorder: Continue her bupropion. 8. Asthma: Home inhalers and nebs. 9. Deep venous thrombosis prophylaxis, sequential compression devices for now. 10. Disposition: Admit to tele floor. Expect to discharge home, follow with family doctor. PT and OT prior to discharge. Social Service to help with discharge planning. Code status: Full code as per my discussion with the daughter and the patient. ROBB
[2019-06-18] MEDS ORDERED: POTASSIUM CHLORIDE 20 MEQ TABCR PO STA (03:32)
[2019-06-18] MEDS: LEVOTHYROXINE SODIUM 100 MCG TABLET PO SCH (05:48)
[2019-06-18 05:58] LABS: Basophils # (auto) 0.02 K/uL (0-0.2); Basophils % (auto) 0.5 %; Eosinophils # (auto) 0.13 K/uL (0-0.5); Hematocrit (blood only) 35.2 % (37-47); Hemoglobin 12.3 g/dL (12.0-16.0); Immature Granulocytes # (auto) 0.01 K/uL (0.00-0.02); Immature Granulocytes % (auto) 0.2 %; Lymphocytes # (auto) 0.44 K/uL (1.2-3.4); Mean Corpuscular Hemoglobin 30.8 pg (25-34); Mean Corpuscular Hgb Conc 34.9 g/dL (32-36); Mean Platelet Volume 7.8 fL (7.4-10.4); Monocytes # (auto) 0.65 K/uL (0.11-0.59); Monocytes % (auto) 14.8 %; Neutrophils # (auto) 3.14 K/uL (1.4-6.5); Neutrophils % (auto) 71.5 %; Platelet Count 235 K/uL (130-400); RDW Coefficient of Variation 12.9 % (11.5-14.5); RDW Standard Deviation 41.9 fL (36.4-46.3); White Blood Count 4.39 K/uL (4.8-10.8)
[2019-06-18 06:33] LABS: Estimated Average Glucose 108 mg/dl; Hemoglobin A1C 5.4 % (4.5-5.6)
[2019-06-18 06:38] LABS: BUN Creatinine Ratio 26.8 (10-20); Calcium 8.4 mg/dl (8.5-10.1); Creatinine Clr Calc Pharmacy 78.2 ml/min; Est GFR (African American) 102.4; Est GFR (Non-African American) 88.4; Potassium 3.1 mmol/L (3.5-5.1)
--- NOTE | 2019-06-18 07:14 | Ultrasound Report ---
ULTRASOUND OF THE CAROTID ARTERIES CLINICAL HISTORY: Strokelike symptoms. Left arm pain and numbness. COMPARISON STUDY: No priors. TECHNIQUE: Real-time, grayscale, and color Doppler sonography of the carotid arteries is performed. I mages are reviewed in the transverse and longitudinal planes. FINDINGS: Blood pressures were not assessed due to limb restrictions. The carotid arteries are patent bilaterally and demonstrate antegrade flow. There is no signal athero sclerotic plaque identified. Normal doppler arterial waveforms are seen throughout. Velocity measurem ents are listed below. Common carotid peak systolic velocity (cm/sec): RIGHT: 111 LEFT: 101 ICA proximal peak systolic velocity (cm/sec): RIGHT: 66 LEFT: 79 ICA mid peak systolic velocity (cm/sec): RIGHT: 74 LEFT: 58 ICA distal peak systolic velocity (cm/sec): RIGHT: 52 LEFT: 52 ICA/CC peak systolic ratio: RIGHT: 0.7 LEFT: 0.8 Antegrade flow was shown in the vertebral arteries. The external carotid arteries are patent. IMPRESSION: 1. There is no sonographic evidence of hemodynamically significant stenosis in the right or left goins tid arterial system. 2. Antegrade flow is shown in the vertebral arteries. ACT 112: Negative or not required by law. Electronically signed by: Phoenix Ramesh M.D. 06/18/2019 7:13 AM
--- NOTE | 2019-06-18 07:21 | Magnetic Resonance Report ---
Brain MRI WITH AND WITHOUT CONTRAST HISTORY: Numbness in left arm. Assess for stroke. TECHNIQUE: Multiplanar multisequence MRI of the brain was performed both before and after the intrave nous administration of contrast. COMPARISON STUDY: Head CT 06/17/2019. FINDINGS: There is no mass, hematoma, midline shift, or acute infarct. The paranasal sinuses are sohail r. The mastoid air cells are clear. The ventricles and sulci demonstrate mild age-related involutiona l changes. Scattered foci of T2 hyperintensity seen within the periventricular and subcortical white matter are nonspecific but suggestive of moderate microvascular ischemic changes. The major vascular flow voids at the skull base are well-maintained. No abnormal enhancement. IMPRESSION: No acute intracranial abnormality. Scattered foci of T2 hyperintensity seen within the periventricula r and subcortical white matter are nonspecific but favor microvascular ischemic change. ACT 112: Negative or not required by law. Electronically signed by: Cade Gutierres M.D. 06/18/2019 7:20 AM
[2019-06-18] MEDS: CHOLECALCIFEROL 1,000 UNITS 25 MCG TAB PO SCH (07:50)
[2019-06-18] MEDS: CALCIUM 600MG + VIT D 400 IU TAB PO SCH (07:50)
[2019-06-18] MEDS: ASPIRIN 81 MG ECTAB PO SCH (07:50)
[2019-06-18] MEDS: BuPROPion XL 300 MG TABCR PO SCH (07:50)
[2019-06-18] MEDS: AMLODIPINE BESYLATE 5 MG TAB PO SCH (07:51)
[2019-06-18] MEDS: SPIRONOLACTONE 25 MG TAB PO SCH (07:51)
[2019-06-18] MEDS: CARBAMAZEPINE 100 MG CHEW TAB PO SCH ×2 (07:51→20:02)
[2019-06-18] MEDS: PANTOprazole 40 MG TAB PO SCH (07:51)
[2019-06-18] MEDS: CELECOXIB 100 MG CAP PO SCH ×2 (07:51→20:01)
[2019-06-18] MEDS ORDERED: LOSARTAN/HCTZ 50/12.5MG TAB PO SCH (09:00)
--- NOTE | 2019-06-18 10:15 | Neurology Consultation ---
Date of Consultation June 18, 2019 Assessment & Plan (1) Hypertensive urgency: Hypertensive urgency presenting with transient paresthesias to the left upper limb and headache. Symptoms resolved. Blood pressure better controlled at this time. No evidence for acute or subacute stroke on imaging. No evidence for hemodynamically significant lesion of the carotid or vertebral arterial systems on Doppler imaging. We will continue with daily low-dose aspirin. Blood pressure management per hospitalist service with further outpatient management per patient's PCP. (2) Complex partial seizure: Partial complex seizures, chronic issue, stable. Patient should continue with carbamazepine 300 mg twice daily. Stable mild leukopenia and hyponatremia likely related to carbamazepine. Could consider switching to oxcarbazepine as an outpatient which is less likely to cause leukopenia and hyponatremia. Patient may have been on oxcarbazepine in the past, however. I will need to check her records in more detail. She may follow-up with me in clinic for ongoing management of this issue. No further work-up for her seizure disorder is necessary at this time. 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 Her seizures are well controlled with Tegretol although she has been noted to have mild hyponatremia and leukopenia. 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 She presented to the emergency department yesterday complaining of acute onset tingling and subtle weakness of the left upper limb that began about 90 minutes prior to her initial assessment. She also complained of an associated headache which is been present for several days. No disturbance of vision or speech reported. She was significantly hypertensive with a blood pressure of 203/97. Her blood pressure was treated with hydralazine and the patient indicates that her symptoms improved. A CT of the head was unremarkable as well as an MRI of the brain and carotid Doppler. Imaging described in further detail below. Allergies Allergy/AdvReac Type Severity Reaction Status Date / Time codeine Allergy Unknown bile duct Verified 06/18/19 00:06 spasm per pt; GI upset nut - unspecified Allergy Unknown HIVES Verified 06/18/19 00:06 ragweed pollen Allergy Unknown INCREASES Verified 06/18/19 00:06 ASTHMA SYMPTOMS,SOB ropinirole Allergy Unknown cant sleep Verified 06/18/19 00:06 morphine AdvReac Intermediate "hot Verified 06/18/19 00:06 flash/ruq pain/vomiting"-PERCOCET IS OK PER PT gabapentin AdvReac Unknown "SWELLING Verified 06/18/19 00:06 OF ANKLES AND WT GAIN" Home Medications Home Medications Medication Instructions Recorded Confirmed Type albuterol sulfate 2.5 mg INHALATION .INHALE PUFFS 12/15/18 06/18/19 History PRN PRN ml albuterol sulfate 90 mcg/actuation 1 puff INHALATION .INHALE PUFFS 12/15/18 06/18/19 History aerosol inhaler PRN PRN gm amlodipine 5 mg tablet 5 mg PO DAILY tab 12/15/18 06/18/19 History bupropion HCl 300 mg 24 hr tablet, 300 mg PO DAILY tab 12/15/18 06/18/19 History extended release calcium carbonate 600 mg calcium 600 mg PO BID tab 12/15/18 06/18/19 History (1,500 mg) tablet celecoxib 100 mg capsule 100 mg PO BID cap 12/15/18 06/18/19 History cholecalciferol (vitamin D3) 25 1,000 units PO DAILY cap 12/15/18 06/18/19 History mcg (1,000 unit) capsule levothyroxine 100 mcg tablet 100 mcg PO DAILY tab 12/15/18 06/18/19 History losartan 100 1 tab PO DAILY tab 12/15/18 06/18/19 History mg-hydrochlorothiazide 25 mg tablet omeprazole 40 mg capsule,delayed 40 mg PO DAILY cap 12/15/18 06/18/19 History release spironolactone 25 mg tablet 25 mg PO DAILY tab 12/15/18 06/18/19 History carbamazepine 100 mg chewable 300 mg PO BID 90 Days #540 tab 05/26/19 06/18/19 Rx tablet aspirin 81 mg PO HS 06/18/19 06/18/19 History melatonin 5 mg PO HS PRN 06/18/19 06/18/19 History Patient History Medical History Benign paroxysmal positional vertigo (Acute 10/22/12) Chest pain (Acute 01/16/14) Complex partial seizure (Chronic) Hypertension (Acute) Lumbar stenosis (Acute 05/19/14) Migraine (Acute 10/22/12) Surgical History History of back surgery History of cholecystectomy History of knee surgery History of oral surgery Family History Father Stroke Dementia Myocardial infarction Mother Diabetes Stroke Hypertension Social History Communication Ability: Effective Beliefs That Will Affect Care: Hoahaoism Hoahaoism Beliefs: samaritan Current Living Situation: Alone Other Information That Helps Us Care for You: No Feels Safe at Home: Yes Safety Concerns: Feels Safe At This Time Smoking Status: Never smoker Hx Alcohol Use: No Hx Substance Use: No Review of Systems Constitutional: no fever and no chills Eyes: no blind spots and no diplopia Ear, Nose, Mouth, Throat: no hearing loss Respiratory: no cough and no dyspnea Cardiovascular: no chest pain and no palpitations Gastrointestinal: no nausea and no vomiting Genitourinary: no urinary incontinence Musculoskeletal: no neck pain and no myalgia Integumentary: no rash and no lesions Neurologic: as per Subjective / HPI; no syncope, no headache(s), no abnormal speech, no confusion and no memory loss Psychiatric: no depression and no anxiety Hematologic / Lymphatic: no easy bleeding and no easy bruising Physical Exam Physical Exam: The patient is a well-developed, well-nourished elderly female. She is alert and fully oriented. Recent and remote memory intact. Attention and concentration normal. Patient exhibits a normal spontaneous speech pattern as well as an age-appropriate fund of knowledge and normal comprehension of vocabulary. Visual mortensen full to confrontation. Visual acuity normal. Pupils equal round reactive to light and accommodation. Eye movements normal. There is no nystagmus, ptosis, or ophthalmoplegia. Facial sensation intact. There is no facial droop or weakness. Hearing intact. Palate elevates to midline. Shoulder shrug intact. Tongue protrudes to midline. Sensation intact all modalities in all 4 limbs. Deep tendon reflexes intact and symmetrical for the arms and legs. Plantar responses downgoing bilaterally. There is no dysdiadochokinesia or dysmetria [id number] or qyph-by-[id number] bilaterally. Ophthalmoscopic examination reveals normal-appearing optic disks and posterior segments. No papilledema or hemorrhages. Carotid pulses normal bilaterally, no bruits to auscultation. Gait and station not tested due to safety concerns. Patient exhibits normal muscle strength and tone for all 4 limbs. No atrophy. No abnormal movements observed. Results & Data Vital Signs (Past 12 Hours) Vital Signs Temp Pulse Pulse Pulse Resp BP BP 06/18/19 08:01 36.5 C 60 18 129/68 06/18/19 08:00 68 06/18/19 03:12 36.8 C 69 15 126/74 06/18/19 00:53 76 06/18/19 00:31 90 06/18/19 00:27 37.0 C 80 22 175/94 H 06/18/19 00:01 63 18 06/18/19 00:00 61 19 183/92 H 06/17/19 23:31 62 21 06/17/19 23:30 59 L 16 175/98 H 06/17/19 23:01 59 L 16 06/17/19 23:00 62 23 179/103 H 06/17/19 22:31 61 24 191/96 H 06/17/19 22:07 06/17/19 22:00 192/97 H Pulse Ox 06/18/19 08:01 96 06/18/19 08:00 06/18/19 03:12 97 06/18/19 00:53 06/18/19 00:31 06/18/19 00:27 97 06/18/19 00:01 99 06/18/19 00:00 98 06/17/19 23:31 98 06/17/19 23:30 98 06/17/19 23:01 98 06/17/19 23:00 98 06/17/19 22:31 99 06/17/19 22:07 98 06/17/19 22:00 98 Laboratory Results WBC 4.39, hemoglobin 12.3, hematocrit 35.2, platelet count 235, sodium 134, potassium 3.1, BUN 17, creatinine 0.63, glucose 90, hemoglobin A1c 5.4, calcium 8.4, magnesium 2.2, triglycerides 46, cholesterol 218, LDL 137, VLDL 9, HDL 72 A carbamazepine level drawn on November 21, [address] was [address] of the head completed June 17, 2019- for hemorrhage or acute process. There are changes suggestive of chronic small vessel disease. I reviewed the images as well as the radiologist interpretation of this test. MRI of the brain completed June 18, 2019- for acute abnormality, no evidence for acute or subacute stroke. There are changes suggestive of chronic cerebrovascular disease. No hydrocephalus. I reviewed the images as well as the radiologist's interpretation of this test. A carotid ultrasound completed June 18, 2019 is unremarkable, no evidence for a significant stenotic lesion of either the carotid or vertebral systems. An electrocardiogram reveals a normal sinus rhythm, 66 bpm. Coding Level of Care Code 17376 Initial Inpt Care Lvl 3 Diagnoses Hypertensive urgency I16.0 Complex partial seizure G40.209
--- NOTE | 2019-06-18 13:44 | Hospitalist Progress Note ---
Date of Service June 18, 2019 Assessment & Plan (1) Hypertension: (2) Migraine: (3) Benign paroxysmal positional vertigo: (4) Hypertensive urgency: (5) Paresthesia: (6) Dizziness: (7) Gait apraxia: Symptoms seem to be gone, MRI negative-+Microvascular Ischemic Changes, nothing acute, carotids are negative. BP keeps rising throughout the day Keep one more night and monitor BP Labs Checked ROS-No Headache, No Visual Changes, No Nausea, No Vomiting, No Fever, No Chills, No Neck Pain or Stiffness, No Chest Pain, No Palpitations, No SOB, No PARKER, No Cough, No Sputum, No Wheezing, No Abdominal Pain, No Diarrhea, No Hematemesis, No Hemoptysis, No Unexpected Weight Loss, No Flank pain, No Melena, No Hematochezia, No Frequency, No Urgency, No Burning, No Hematuria, No Rashes, No Diaphoresis. Appetite is Normal Physical Exam Gen-AAO x 3, NAD, Afebrile Head-NCAT, EOMI, PERRLA, Anicteric Sclera, No Posterior Pharyngeal Erythema Neck-Supple, No JVD, No Thyromegaly, No Masses, No LAD, No Bruits Lungs-Clear to Auscultation Bilaterally, No Rales, No Rhonchi, No Wheezing, No Crepitus Chest-No S4, +S1, +S2, No S3, No Murmurs, No Rubs, No Gallops, No Ectopy Abdomen-Soft, Bowel Sounds Present, Non Tender, Non Distended, No Hepatomegaly, No Splenomegaly, No Palpable Masses, No Rebound, No Rigidity, No Guarding Musculoskeletal-Full Range of Motion Bilaterally, No CVAT Extremities-No Cyanosis, No Clubbing, No Edema Nuero-Cranial Nerves II-XII grossly intact, Motor WNL, DTRs WNL, Strength WNL, Non Focal Psych-Normal Mood Results & Data ([facility]) Vital Signs (Past 12 Hours) Vital Signs Temp Pulse Pulse Resp BP Pulse Ox 06/18/19 11:00 36.6 C 72 18 147/84 H 96 06/18/19 08:01 36.5 C 60 18 129/68 96 06/18/19 08:00 68 06/18/19 03:12 36.8 C 69 15 126/74 97
--- NOTE | 2019-06-18 13:51 | Electrocardiogram Report ---
Test Reason : Blood Pressure : / mmHG Vent. Rate : 066 BPM Atrial Rate : 066 BPM P-R Int : 208 ms QRS Dur : 092 ms QT Int : 416 ms P-R-T Axes : 059 -22 044 degrees QTc Int : 436 ms Poor data quality, interpretation may be adversely affected Normal sinus rhythm Normal ECG When compared with ECG of 11-APR-2016 10:27, No significant change was found Confirmed by Jose Wright ([id number]) on 06/18/2019 1:51:15 PM Referred By: REFERRED SELF Confirmed By:Jose Wright
[2019-06-18] MEDS: METOPROLOL TARTRATE 25 MG TAB PO SCH ×2 (15:12→20:01)
[2019-06-19] MEDS: LEVOTHYROXINE SODIUM 100 MCG TABLET PO SCH (06:20)
[2019-06-19] MEDS: hydroCHLOROthiazide 25 MG TAB PO SCH ×2 (06:21→07:59)
[2019-06-19 06:36] LABS: Hematocrit (blood only) 36.1 % (37-47); Hemoglobin 12.5 g/dL (12.0-16.0); Mean Corpuscular Hemoglobin 30.7 pg (25-34); Mean Corpuscular Hgb Conc 34.6 g/dL (32-36); Mean Corpuscular Volume 88.7 fL (80-100); Mean Platelet Volume 7.7 fL (7.4-10.4); Platelet Count 256 K/uL (130-400); RDW Coefficient of Variation 13.1 % (11.5-14.5); RDW Standard Deviation 42.8 fL (36.4-46.3); Red Blood Count 4.07 M/uL (4.2-5.4); White Blood Count 3.49 K/uL (4.8-10.8)
[2019-06-19 07:17] LABS: BUN Creatinine Ratio 28.6 (10-20); Calcium 8.7 mg/dl (8.5-10.1); Creatinine Clr Calc Pharmacy 72.1 ml/min; Est GFR (African American) 99.4; Est GFR (Non-African American) 85.8; Potassium 3.8 mmol/L (3.5-5.1)
[2019-06-19] MEDS: AMLODIPINE BESYLATE 5 MG TAB PO SCH (08:00)
[2019-06-19] MEDS: PANTOprazole 40 MG TAB PO SCH (08:00)
[2019-06-19] MEDS: ASPIRIN 81 MG ECTAB PO SCH (08:00)
[2019-06-19] MEDS: BuPROPion XL 300 MG TABCR PO SCH (08:00)
[2019-06-19] MEDS: CALCIUM 600MG + VIT D 400 IU TAB PO SCH (08:00)
[2019-06-19] MEDS: METOPROLOL TARTRATE 25 MG TAB PO SCH (08:01)
[2019-06-19] MEDS: CARBAMAZEPINE 100 MG CHEW TAB PO SCH (08:01)
[2019-06-19] MEDS: CHOLECALCIFEROL 1,000 UNITS 25 MCG TAB PO SCH (08:01)
[2019-06-19] MEDS: SPIRONOLACTONE 25 MG TAB PO SCH (08:01)
[2019-06-19] MEDS: CELECOXIB 100 MG CAP PO SCH (08:02)
[2019-06-19] MEDS ORDERED: LOSARTAN POTASSIUM 50 MG TAB PO SCH ×2 (09:00)
--- NOTE | 2019-06-19 11:12 | Discharge Summary ---
Date of Service June 19, 2019 Admission HPI Per Admitting Provider This is a 73-year-old female with past medical history significant for hypothyroidism, metabolic syndrome, mild persistent asthma, allergic rhinitis, primary hypertension, GERD, generalized osteoarthrosis and osteoporosis, degenerative disc disease, complex partial seizures, psoriasis, psoriatic arthropathy, generalized anxiety disorder, periodic limb movement disorder. The patient since her a year ago she lives alone, ambulates with the help of cane. Daughter is in the room. She is having balance issues since about 1 month and about 2 weeks ago she is having vertigo. She is following with a neurologist and also with PT. She gets vertigo on and off, but since last 2 weeks, somewhat more worse and she is feeling somewhat dizzy and today around 8:30 p.m., she noticed tingliness in her left arm, then also somewhat numbness but there is no loss of strength. At that time her blood pressure was running high, so she was brought into the ER. In the ER around 9:30,her symptoms were still present, blood pressure is high. The Er physician notified her neurologist interventional physician. Her blood pressure was in 200s, IV hydralazine was given, the blood pressure is better now. Symptoms resolved. Denies any dysarthria or dysphagia. Currently, resting comfortable and hemodynamically stable. She has some headache, but no blurred visions, no earache, no runny nose, no sore throat, no cough, no dysphagia, no odynophagia. Appetite is not that great. Not eating much. When her , she lost some weight, but she gained some of it back. Does not sleep well. Uses Tegretol and melatonin helps her to sleep little bit better. No sweating. No fever or chills. She always feels somewhat cold. No nausea, no vomiting, no chest pain or shortness of breath. No abdominal pain. Normal bowel and bladder movements. No blood in the stools or black stools. No hematuria or burning micturition, no swelling in the legs, no rash. She says she is somewhat bruising easily lately and attributes it to her old age. Admission Exam Per Admitting Provider PHYSICAL EXAMINATION: GENERAL: The patient is of moderate build, not in acute distress. VITAL SIGNS: Temperature 37.1, pulse 61, respiratory rate 18, blood pressure 191/96, oxygen 97% room air. HEENT: No pallor, no icterus. Pupils equal, round, reactive to light. NECK: No JVD, no neck masses, no carotid bruits. CARDIOVASCULAR: S1, S2 heard, regular rate and rhythm, no murmur, no gallop. RESPIRATORY SYSTEM: Normal AP diameter. No accessory muscle use. No wheezing, no crackles. ABDOMEN: Soft, bowel sounds present. Nontender, no distention. CENTRAL NERVOUS SYSTEM: Alert and oriented. Cranial nerves II-XII grossly intact. Power 5/5 in all extremities. Sensation is intact, position sense intact. No pronator drift. Coordination of movements normal. Tdolbv-po-ajsm test normal. Qejv-tr-quze test normal. Babinski negative. EXTREMITIES: No edema, no erythema. Principal Diagnosis (1) Hypertension: (2) Migraine: (3) Benign paroxysmal positional vertigo: (4) Hypertensive urgency: (5) Paresthesia: (6) Dizziness: (7) Gait apraxia: Discharge Exam Physical Exam Gen-AAO x 3, NAD, Afebrile Head-NCAT, EOMI, PERRLA, Anicteric Sclera, No Posterior Pharyngeal Erythema Neck-Supple, No JVD, No Thyromegaly, No Masses, No LAD, No Bruits Lungs-Clear to Auscultation Bilaterally, No Rales, No Rhonchi, No Wheezing, No Crepitus Chest-No S4, +S1, +S2, No S3, No Murmurs, No Rubs, No Gallops, No Ectopy Abdomen-Soft, Bowel Sounds Present, Non Tender, Non Distended, No Hepatomegaly, No Splenomegaly, No Palpable Masses, No Rebound, No Rigidity, No Guarding Musculoskeletal-Full Range of Motion Bilaterally, No CVAT Extremities-No Cyanosis, No Clubbing, No Edema Nuero-Cranial Nerves II-XII grossly intact, Motor WNL, DTRs WNL, Strength WNL, Non Focal Psych-Normal Mood Discharge Data Allergies Allergy/AdvReac Type Severity Reaction Status Date / Time codeine Allergy Unknown bile duct Verified 06/18/19 00:06 spasm per pt; GI upset nut - unspecified Allergy Unknown HIVES Verified 06/18/19 00:06 ragweed pollen Allergy Unknown INCREASES Verified 06/18/19 00:06 ASTHMA SYMPTOMS,SOB ropinirole Allergy Unknown cant sleep Verified 06/18/19 00:06 morphine AdvReac Intermediate "hot Verified 06/18/19 00:06 flash/ruq pain/vomiting"-PERCOCET IS OK PER PT gabapentin AdvReac Unknown "SWELLING Verified 06/18/19 00:06 OF ANKLES AND WT GAIN" Consultations 06/17/19 23:10 ED Decision to Admit Stat 06/18/19 00:37 Consult Case Management - Discharge Planning Routine Consult Case Management - Discharge Planning Routine 06/18/19 08:00 Consult Neurology Routine Ordered Studies 06/17/19 21:53 CT head/brain wo con Stat 06/18/19 00:37 MR brain wo/w con Urgent US carotid doppler BI Routine Current Diagnoses Localization-related (focal) (partial) symptomatic epilepsy and epileptic syndromes with complex partial seizures, not intractable, without status epilepticus (06/17/19) Migraine, unspecified, not intractable, without status migrainosus (06/17/19) Benign paroxysmal vertigo, unspecified ear (06/17/19) Essential (primary) hypertension (06/17/19) Hypertensive urgency (06/17/19) Paresthesia of skin (06/17/19) Dizziness and giddiness (06/17/19) Apraxia (06/17/19) Allergies codeine Allergy (Unknown, Verified 06/18/19 00:06) bile duct spasm per pt; GI upset nut - unspecified Allergy (Unknown, Verified 06/18/19 00:06) HIVES ragweed pollen Allergy (Unknown, Verified 06/18/19 00:06) INCREASES ASTHMA SYMPTOMS,SOB ropinirole Allergy (Unknown, Verified 06/18/19 00:06) cant sleep morphine Adverse Reaction (Intermediate, Verified 06/18/19 00:06) "hot flash/ruq pain/vomiting"-PERCOCET IS OK PER PT gabapentin Adverse Reaction (Unknown, Verified 06/18/19 00:06) "SWELLING OF ANKLES AND WT GAIN" Height/Weight/Isolation Height 5 ft 4 in Weight 77.5 kg Chemistry 06/17/19 06/18/19 06/19/19 21:52 05:44 06:14 Sodium 132 L 134 L 132 L Potassium 3.4 L 3.1 L 3.8 D Chloride 98 101 103 Carbon Dioxide 28 25 24 Anion Gap 6.0 7.0 5.0 BUN 20 H 17 20 H Creatinine 0.80 0.63 0.69 Glucose 128 H 90 82 Hospital Course (1) Hypertension: (2) Migraine: (3) Benign paroxysmal positional vertigo: (4) Hypertensive urgency: (5) Paresthesia: (6) Dizziness: (7) Gait apraxia: Symptoms are gone, MRI negative-+Microvascular Ischemic Changes, nothing acute, carotids are negative. BP was an issue Kept one more night and added Lopressor Total Time Total Time Spent Total Time Spent (In Minutes): 45 mins Total Time Includes: Examination of the Patient, Discharge Planning, Medication Reconciliation and Communication With Other Providers Discharge Plan Discharge Items Patient Disposition: Home - Self-Care Reason For Visit: STROKE LIKE SYMPTOMS Discharge Diagnosis: (1) Hypertension: (2) Migraine: (3) Benign paroxysmal positional vertigo: (4) Hypertensive urgency: (5) Paresthesia: (6) Dizziness: (7) Gait apraxia: Condition on Discharge: Good Health Concerns: Blood Pressure Activity: Resume your previous activity Lifting: Gradually increase as tolerated Bathing: No limitations Sexual Activity: When tolerated Exercise/Sports: Gradually increase as tolerated Driving/Machine Use: No limitations Weightbearing: Full weightbearing Non-emergency contact: Primary Care Provider and Neurologist Call non-emergency contact if: you have any medication questions Follow-up/Referrals: Rigoberto Valdivia MD [Primary Care Provider] - 06/23/19 2:45 pm Diet: Heart Healthy Addtl Attending Provider Instructions: Wear compression stockings, knee high Addtl Statistical Clerk Advertising Provider Instructions: Follow up c PCP Dr Escobedo and Neurology Dr Collins Pending Studies at Discharge: No Stand-Alone Forms: My [facility] [employer], Smoking Cessation Medications and DC Order Prescriptions: New aspirin [Ecotrin Low Strength] 81 mg Tablet,Delayed Release (Dr/Ec) 81 mg PO DAILY Qty: 30 RF: 0 metoprolol tartrate 25 mg Tablet 25 mg PO BID Qty: 60 RF: 0 Continued carbamazepine 100 mg tablet,chewable 300 mg PO BID 90 Days Qty: 540 RF: 1 albuterol sulfate 90 mcg/actuation HFA aerosol inhaler 1 puff inhalation .INHALE PUFFS PRN PRN (Reason: sob/wheezing) RF: 0 omeprazole 40 mg capsule,delayed release(DR/EC) 40 mg PO DAILY RF: 0 spironolactone 25 mg tablet 25 mg PO DAILY RF: 0 levothyroxine 100 mcg tablet 100 mcg PO DAILY RF: 0 losartan-hydrochlorothiazide 100-25 mg tablet 1 tab PO DAILY RF: 0 celecoxib 100 mg capsule 100 mg PO BID RF: 0 albuterol sulfate 2.5 mg /3 mL (0.083 %) solution for nebulization 2.5 mg inhalation .INHALE PUFFS PRN PRN (Reason: Wheezing) RF: 0 calcium carbonate 600 mg calcium (1,500 mg) tablet 600 mg PO BID RF: 0 cholecalciferol (vitamin D3) 1,000 unit capsule 1,000 units PO DAILY RF: 0 bupropion HCl 300 mg tablet extended release 24 hr 300 mg PO DAILY RF: 0 aspirin 81 mg Tablet,Delayed Release (Dr/Ec) 81 mg PO HS RF: 0 melatonin 5 mg Tablet 5 mg PO HS PRN (Reason: Sleep) RF: 0 No Action amlodipine 5 mg tablet 5 mg PO DAILY RF: 0 Discharge Orders: Discharge Order (Routine); Ordered 06/19/19 Ordered By: Fernandez Velazco Admission Data Admit Date/Time: 06/17/19 23:57 Attending Provider: Fernandez Velazco Admit Provider: Joe Sanabria Primary Care Provider: Rigoberto Valdivia Other Providers: Joe Sanabria ; Zeeshan Collins
[2019-06-19] MEDS ORDERED: STROKE PATIENT DISCHARGE SCH (11:54)
[2019-06-21] MEDS ORDERED: LEVOTHYROXINE SODIUM 100 MCG TABLET PO SCH (06:30)
== END 2019-06-19 14:10 | disposition home or self-care (01) | DRG 305 ==
LOC: ED 21:43 → 2S 23:57

== ENCOUNTER 2021-02-17 13:51 | Inpatient (IN) ==
[2021-02-17] MEDS ORDERED: fentaNYL citrate 100 MCG/2 ML VIAL IV PRN (14:20)
[2021-02-17] MEDS ORDERED: ACETAMINOPHEN 1000 MG/100 ML IV IV STA (14:20)
[2021-02-17] MEDS ORDERED: fentaNYL citrate 100 MCG/2 ML VIAL IV STA (14:20)
[2021-02-17] MEDS ORDERED: ONDANSETRON INJ 2 MG/ML 2 ML VIAL IV STA (14:20)
--- NOTE | 2021-02-17 14:28 | Emergency Department Note ---
Impression & Plan Closed fracture of left proximal humerus, Acute head trauma, Acute hyponatremia, Fall ED Provider Note NAME: KAIN GALDAMEZ AGE: 75 SEX: F : 1945 ARRIVES VIA: Ambulance INFORMANT: [Patient][family] ED PROVIDER(S): [Phoenix Dubon MD] CHIEF COMPLAINT: Fall, pain HISTORY OF PRESENT ILLNESS: The patient is a 75-year-old female who presents to the ER after a fall. She apparently fell coming down her stairs onto the road. She fell backwards. She struck her head but did not lose consciousness. Her complaint is left shoulder discomfort. The pain is severe. She presents by ambulance. The patient's tetanus status is current. The patient denies any increased back pain, there is no real neck pain although, the stiff collar is uncomfortable. She is not short of breath. No chest pain. No abdominal pain. No lower extremity pain. She felt fine earlier today before she fell. REVIEW OF SYSTEMS: See HPI for pertinent positives and negatives. A total of ten systems were reviewed and were otherwise negative. PMHx/PSHx: See Below SOCIAL HISTORY: See Below. PHYSICAL EXAM: GENERAL: Patient is in moderate distress from pain. HEENT: No acute trauma, normocephalic atraumatic, mucous membranes moist, no nasal congestion, no scleral icterus. NECK: No stridor, trachea is midline. Stiff collar in place. LUNGS: Clear to auscultation bilaterally, no wheeze, no rhonchi, breath sounds equal. HEART: Without murmurs gallops or rubs, regular rate and rhythm. ABDOMEN: Soft, nontender, bowel sounds positive, no hernias, no peritonitis. EXTREMITIES: No cyanosis or edema. She has significant pain to palpate about the left shoulder. There is some edema/swelling to the shoulder noted. The elbow and wrist on the left seem nontender. There is no evidence for neurovascular compromise of the left upper extremity. There is a strong left radial pulse. No pain to move the lower extremities. She does have some subtle abrasions to the fingers of her left hand. No evidence for deformity to the fingers. NEUROLOGIC: Oriented x 3, no acute motor or sensory deficits, no focal weakness. SKIN: No rash, no jaundice, no diaphoresis. Back: No abrasions, nontender lumbar or thoracic spine. DIFFERENTIAL DIAGNOSIS: Fracture, dislocation, contusion, intra-abdominal bleeding, pneumothorax, intrathoracic injury, intracranial injury, compartment syndrome, rhabdomyolysis, as well as other pathologies. EMERGENCY DEPARTMENT COURSE/PROCEDURES: MEDICAL DECISION MAKING: There is no leukocytosis or concerning anemia. Sodium is quite low at 125 although, the patient is chronically hyponatremic. Today's value is a bit lower than her baseline. There was no kidney failure. Covid testing is pending. Brain CT showed no acute bleed or mass-effect. C-spine CT showed no acute fracture. Left shoulder CT showed a proximal humeral fracture with displacement. There was no shoulder dislocation. Films of the left humerus, left forearm and left wrist were performed. The proximal humeral fracture was noted, no fractures to the distal humerus, the forearm or wrist. On exam, the patient did not have evidence for injury to her back, abdomen, chest or lower extremities. No evidence for left upper extremity neurovascular compromise. The patient was quite uncomfortable. She had an IV placed. She was given IV saline for hydration. She received IV Zofran and IV fentanyl, she was given IV Tylenol. She was eventually placed in a left arm sling. I did speak with orthopedics. Patient will be seen by them for potential orthopedic intervention. The patient is in need of a hospital stay for pain control. She is in no condition for discharge. I did speak with the patient and her family, case management has been involved. The on-call hospitalist has been consulted. Past Med/Surg History Medical History (Updated 02/17/21 @ 16:48 by Phoenix Dubon MD) Benign paroxysmal positional vertigo (10/22/12) Chest pain (01/16/14) Complex partial seizure Hypertension Lumbar stenosis (05/19/14) Migraine (10/22/12) Surgical History History of back surgery History of cholecystectomy History of knee surgery History of oral surgery Family History Father Stroke Dementia Myocardial infarction Mother Diabetes Stroke Hypertension Social History Smoking Status: Never smoker Hx Alcohol Use: No Hx Substance Use: No Preferred Language: Finnish Communication Ability: Effective Box Toe Buffer Required: No Beliefs That Will Affect Care: None Current Living Situation: Alone Feels Safe at Home: Yes Assistive Devices: Denture - Upper, Denture - Lower and Glasses Allergies Allergies Allergy/AdvReac Type Severity Reaction Status Date / Time codeine Allergy Unknown bile duct Verified 11/26/20 20:00 spasm per pt; GI upset nut - unspecified Allergy Unknown HIVES Verified 11/26/20 20:00 ragweed pollen Allergy Unknown INCREASES Verified 11/26/20 20:00 ASTHMA SYMPTOMS,SOB ropinirole Allergy Unknown cant sleep Verified 11/26/20 20:00 morphine AdvReac Intermediate "hot Verified 11/26/20 20:00 flash/ruq pain/vomiting"-PERCOCET IS OK PER PT gabapentin AdvReac Unknown "SWELLING Verified 11/26/20 20:00 OF ANKLES AND WT GAIN" Home Meds Home Medications Medication Instructions Recorded Confirmed albuterol sulfate 2.5 mg INHALATION .INHALE PUFFS 12/15/18 11/26/20 PRN PRN ml albuterol sulfate 90 mcg/actuation 2 puff INHALATION Q6 PRN gm 12/15/18 11/26/20 aerosol inhaler calcium carbonate 600 mg calcium 600 mg PO BID tab 12/15/18 11/26/20 (1,500 mg) tablet cholecalciferol (vitamin D3) 25 1,000 units PO DAILY cap 12/15/18 11/26/20 mcg (1,000 unit) capsule levothyroxine 100 mcg tablet 100 mcg PO [id number] tab 12/15/18 11/26/20 spironolactone 25 mg tablet 25 mg PO DAILY tab 12/15/18 11/26/20 melatonin 5 mg tablet 5 mg PO HS PRN 06/18/19 11/26/20 venlafaxine 150 mg 150 mg PO DAILY 10/28/19 11/26/20 capsule,extended release 24 hr (Effexor XR) betamethasone dipropionate 0.05 % 1 applic TOPICAL BID PRN 02/26/20 11/26/20 topical ointment denosumab 60 mg/mL subcutaneous 60 mg SUBCUT .[id number] 02/26/20 11/26/20 syringe (Prolia) fluticasone propionate 230 2 puff INHALATION DAILY 02/26/20 11/26/20 mcg-salmeterol 21 mcg/actuation HFA inhaler (Advair HFA) hydralazine 25 mg tablet 25 mg PO TID 02/26/20 11/26/20 levothyroxine 100 mcg tablet 50 mcg PO .QSUN 02/26/20 11/26/20 lorazepam 0.5 mg tablet 0.5 mg PO TID PRN 02/26/20 11/26/20 omeprazole 40 mg capsule,delayed 40 mg PO DAILY 02/26/20 11/26/20 release tiotropium bromide 2.5 2 puff INHALATION DAILY 02/26/20 11/26/20 mcg/actuation mist for inhalation (Spiriva Respimat) torsemide 20 mg tablet 20 mg PO DAILY PRN 02/26/20 11/26/20 valsartan 320 mg tablet (Diovan) 320 mg PO DAILY 02/26/20 11/26/20 carvedilol 6.25 mg tablet 6.25 mg PO BID 11/26/20 11/26/20 Previous Rx's Medication Instructions Recorded carbamazepine 100 mg chewable 200 mg PO BID 90 Days #360 tab 11/02/20 tablet Results & Data (ED) Vital Signs Vital Signs - 24 hr 02/17/21 14:00 02/17/21 15:30 Temperature 36.8 C Temperature Source Oral Pulse Rate 69 Pulse Rate [Left Finger] 62 63 Pulse Rhythm Regular Pulse Rhythm [Left Finger] Regular Regular Pulse Strength Normal Pulse Strength [Left Finger] Normal Normal Respiratory Rate 20 20 Respiratory Effort / Characteristics Non-Labored Spontaneous Non-Labored Spontaneous Respiratory Depth Normal Normal Respiratory Pattern Regular Regular Blood Pressure 173/78 H Blood Pressure [Right Arm] 163/77 H 160/74 H Blood Pressure Mean 109 Blood Pressure Mean [Right Arm] 105 102 Blood Pressure Position Sitting Blood Pressure Position [Right Arm] Sitting Sitting Pulse Oximetry 97 96 Oxygen Delivery Method Room Air Room Air Sepsis Recent Fever Within 48 Hours No Sepsis New/Unexplained Change in Mental Status No Sepsis Action Taken by Nursing No Action Required Home Medications Current Medication List: was personally reviewed by me Laboratory Data Attestation: I reviewed the patient's lab results. Result diagrams: 02/17/21 16:02 02/17/21 16:02 Lab Results 02/17/21 02/17/21 02/17/21 Range/Units 15:10 16:02 16:02 WBC 6.47 (4.8-10.8) K/uL RBC 3.90 L (4.2-5.4) M/uL Hgb 12.2 (12.0-16.0) g/dL Hct 35.2 L (37-47) % MCV 90.3 (80-100) fL MCH 31.3 (25-34) pg MCHC 34.7 (32-36) g/dL RDW Std Deviation 44.7 (36.4-46.3) fL RDW Coeff of Sameer 13.5 (11.5-14.5) % Plt Count 301 (130-400) K/uL MPV 8.1 (7.4-10.4) fL Sodium 125 L (136-145) mmol/L Potassium 3.9 (3.5-5.1) mmol/L Chloride 93 L (98-107) mmol/L Carbon Dioxide 26 (21-32) mmol/L Anion Gap 6.0 (3-11) BUN 26 H (7-18) mg/dl Creatinine 0.71 (0.6-1.2) mg/dl Est Cr Clr Drug Dosing Not Reportable Est GFR ( Amer) 95.9 ml/min Est GFR (Non-Af Amer) 82.7 ml/min BUN/Creatinine Ratio 35.9 H (10-20) Glucose 110 H (70-99) mg/dl Calcium 9.3 (8.5-10.1) mg/dl COVID-19 Eval Order Covid19 at [facility] Administered Medications Fentanyl Citrate (Fentanyl Citrate 100 Mcg/2 Ml Vial) 100 mcg IV Q15M PRN PRN Reason: Pain Stop: 03/03/21 14:19 Last Admin: 02/17/21 15:38 Dose: 50 mcg Documented by: [id number] Discontinued Medications Acetaminophen (Acetaminophen 1000 Mg/100 Ml Iv) 1,000 mg IV NOW STA Stop: 02/17/21 14:21 Last Admin: 02/17/21 14:43 Dose: 1,000 mg Documented by: [id number] Fentanyl Citrate (Fentanyl Citrate 100 Mcg/2 Ml Vial) 100 mcg IV NOW STA Stop: 02/17/21 14:21 Last Admin: 02/17/21 14:43 Dose: 50 mcg Documented by: [id number] Ondansetron HCl (Ondansetron Inj 2 Mg/Ml 2 Ml Vial) 4 mg IV NOW STA Stop: 02/17/21 14:21 Last Admin: 02/17/21 14:44 Dose: 4 mg Documented by: [id number] Imaging Data Radiologist's Impression: Cervical Spine CT 02/17/21 14:20 CT OF THE CERVICAL SPINE WITHOUT CONTRAST CLINICAL HISTORY: fall COMPARISON STUDY: No previous studies for comparison. TECHNIQUE: Helical axial images of the cervical spine were obtained without IV contrast. Sagittal and coronal reconstructions were viewed. Automated exposure control was utilized for the study. A dose lowering technique was utilized adhering to the principles of ALARA. FINDINGS: Alignment of the cervical spine is anatomic. Vertebral body heights are maintained. No acute cervical spine fracture or subluxation is present. There is no prevertebral edema. Facet joints are intact. Powerhouse Mechanic image demonstrates a proximal left humeral fracture which is better depicted on the CT of the left shoulder. Degenerative changes at the C1-C2 articulation are noted. There is mild multilevel facet arthrosis within the cervical spine. IMPRESSION: No acute cervical spine fracture or subluxation. ACT 112: Negative or not required by law. Electronically signed by: Harlan Larkin M.D. 02/17/2021 3:[address] 02/17/21 14:[address] DOSE: HISTORY: fall TECHNIQUE: Multiaxial CT images of the head were performed without the use of intravenous contrast. Automated exposure control was utilized for this study. A dose lowering technique was utilized adhering to the principles of ALARA. Comparison: Head CT 11/26/2020. Findings: The paranasal sinuses and mastoid air cells are clear. The calvarium and skull base are intact. There is no mass, hematoma, midline shift, acute infarct. White matter hypodensity is nonspecific but suggestive of microvascular ischemic change. The ventricles and sulci demonstrate mild age-related involutional changes. Impression: No significant change compared to the prior study. No acute intracranial abnormality. ACT 112: Negative or not required by law. Electronically signed by: Cade Gutierres M.D. 02/17/2021 3:[address] 02/17/21 14:[address] DOSE: HISTORY: Left shoulder pain. fall TECHNIQUE: Multiaxial CT images of the left shoulder were performed and reformatted in the sagittal and coronal plane without the use of contrast. A dose lowering technique was utilized adhering to the principles of ALARA. COMPARISON: None. FINDINGS: There is a displaced and slightly comminuted oblique fracture within the proximal metaphysis of the left humerus which extends to the left humeral neck. No fractures of the left humeral head. No dislocation at the glenohumeral joint. The left clavicle is intact. The fracture demonstrates up to 2 cm of anterior displacement and 2 cm of overlap. The scapula appears intact. Anterior soft tissue swelling/contusion is noted within the left shoulder. IMPRESSION: Slightly comminuted and displaced fracture within the left humeral neck/proximal shaft as described above. No dislocation. ACT 112: Negative or not required by law. Electronically signed by: Cade Gutierres M.D. 02/17/2021 3:29 PM Forearm X-Ray 02/17/21 15:42 XR forearm LT 2V CLINICAL HISTORY: fall COMPARISON: None FINDINGS: No acute fracture of the left radius or ulna is identified. Alignment of the left elbow is anatomic. There is no evidence for left elbow joint effusion. IMPRESSION: No acute fracture of the left radius or ulna. ACT 112: Negative or not required by law. Electronically signed by: Harlan Larkin M.D. 02/17/2021 4:33 PM Humerus X-Ray 02/17/21 15:42 XR humerus LT 2V CLINICAL HISTORY: fall COMPARISON: CT of the left shoulder performed earlier today. FINDINGS: Alignment of the left glenohumeral and acromioclavicular joints is anatomic. Note is again made of a displaced comminuted left humeral neck fracture which extends to the proximal shaft. Fracture is slightly extends into the humeral head. No distal left humeral fracture is present. IMPRESSION: Acute comminuted displaced proximal left humeral fracture, as described above. ACT 112: Negative or not required by law. Electronically signed by: Harlan Larkin M.D. 02/17/2021 4:32 PM Head Trauma GCS Score: 15 Discharge Plan Visit Data Chief Complaint: Fall ED Provider: Phoenix Dubon Discharge Problem: Closed fracture of left proximal humerus, Acute head trauma, Acute hyponatremia, Fall Patient Disposition: Admitted As Inpatient Condition: Fair Forms Stand Alone Forms: [employer] Prescriptions Prescriptions: No Action carbamazepine 100 mg tablet,chewable 200 mg PO BID 90 Days Qty: 360 RF: 1 albuterol sulfate 90 mcg/actuation HFA aerosol inhaler 2 puff inhalation Q6 PRN (Reason: sob/wheezing) RF: 0 spironolactone 25 mg tablet 25 mg PO DAILY RF: 0 levothyroxine 100 mcg tablet 100 mcg PO [id number] RF: 0 albuterol sulfate 2.5 mg /3 mL (0.083 %) solution for nebulization 2.5 mg inhalation .INHALE PUFFS PRN PRN (Reason: Wheezing) RF: 0 calcium carbonate 600 mg calcium (1,500 mg) tablet 600 mg PO BID RF: 0 cholecalciferol (vitamin D3) 1,000 unit capsule 1,000 units PO DAILY RF: 0 venlafaxine [Effexor XR] 150 mg capsule,extended release 24hr 150 mg PO DAILY RF: 0 melatonin 5 mg Tablet 5 mg PO HS PRN (Reason: Sleep) RF: 0 Advair HFA 230-21 mcg/actuation HFA aerosol inhaler 2 puff INHALATION DAILY RF: 0 torsemide 20 mg tablet 20 mg PO DAILY PRN (Reason: fluid build up) RF: 0 hydralazine 25 mg tablet 25 mg PO TID RF: 0 omeprazole 40 mg capsule,delayed release(DR/EC) 40 mg PO DAILY RF: 0 levothyroxine 100 mcg tablet 50 mcg PO .QSUN RF: 0 valsartan [Diovan] 320 mg tablet 320 mg PO DAILY RF: 0 Spiriva Respimat 2.5 mcg/actuation mist 2 puff INHALATION DAILY RF: 0 lorazepam 0.5 mg Tablet 0.5 mg PO TID PRN (Reason: Anxiety) RF: 0 betamethasone dipropionate 0.05 % Ointment 1 applic TOPICAL BID PRN (Reason: FLAREUPS) RF: 0 Prolia 60 mg/mL Syringe 60 mg SUBCUT .[id number] RF: 0 carvedilol 6.25 mg tablet 6.25 mg PO BID RF: 0 Referrals Referrals: Rigoberto Valdivia MD [Primary Care Provider] -
--- NOTE | 2021-02-17 15:24 | CT Scan Report ---
HEAD CT NONCONTRAST CT DOSE: HISTORY: fall TECHNIQUE: Multiaxial CT images of the head were performed without the use of intravenous contrast. A utomated exposure control was utilized for this study. A dose lowering technique was utilized adheri ng to the principles of ALARA. Comparison: Head CT 11/26/2020. Findings: The paranasal sinuses and mastoid air cells are clear. The calvarium and skull base are int act. There is no mass, hematoma, midline shift, acute infarct. White matter hypodensity is nonspecifi c but suggestive of microvascular ischemic change. The ventricles and sulci demonstrate mild age-rela mily involutional changes. Impression: No significant change compared to the prior study. No acute intracranial abnormality. ACT 112: Negative or not required by law. Electronically signed by: Cade Gutierres M.D. 02/17/2021 3:23 PM
--- NOTE | 2021-02-17 15:27 | CT Scan Report ---
CT OF THE CERVICAL SPINE WITHOUT CONTRAST CLINICAL HISTORY: fall COMPARISON STUDY: No previous studies for comparison. TECHNIQUE: Helical axial images of the cervical spine were obtained without IV contrast. Sagittal a nd coronal reconstructions were viewed. Automated exposure control was utilized for the study. A do se lowering technique was utilized adhering to the principles of ALARA. FINDINGS: Alignment of the cervical spine is anatomic. Vertebral body heights are maintained. No acut e cervical spine fracture or subluxation is present. There is no prevertebral edema. Facet joints are intact. Ambulance Attendant image demonstrates a proximal left humeral fracture which is better depicted on the C T of the left shoulder. Degenerative changes at the C1-C2 articulation are noted. There is mild multi level facet arthrosis within the cervical spine. IMPRESSION: No acute cervical spine fracture or subluxation. ACT 112: Negative or not required by law. Electronically signed by: Harlan Larkin M.D. 02/17/2021 3:25 PM
--- NOTE | 2021-02-17 15:30 | CT Scan Report ---
LEFT SHOULDER CT CT DOSE: HISTORY: Left shoulder pain. fall TECHNIQUE: Multiaxial CT images of the left shoulder were performed and reformatted in the sagittal a nd coronal plane without the use of contrast. A dose lowering technique was utilized adhering to the principles of ALARA. COMPARISON: None. FINDINGS: There is a displaced and slightly comminuted oblique fracture within the proximal metaphysi s of the left humerus which extends to the left humeral neck. No fractures of the left humeral head. No dislocation at the glenohumeral joint. The left clavicle is intact. The fracture demonstrates up t o 2 cm of anterior displacement and 2 cm of overlap. The scapula appears intact. Anterior soft tissue swelling/contusion is noted within the left shoulder. IMPRESSION: Slightly comminuted and displaced fracture within the left humeral neck/proximal shaft as described a brandon. No dislocation. ACT 112: Negative or not required by law. Electronically signed by: Cade Gutierres M.D. 02/17/2021 3:29 PM
[2021-02-17 16:17] LABS: Hematocrit (blood only) 35.2 % (37-47); Hemoglobin 12.2 g/dL (12.0-16.0); Mean Corpuscular Hemoglobin 31.3 pg (25-34); Mean Corpuscular Hgb Conc 34.7 g/dL (32-36); Mean Corpuscular Volume 90.3 fL (80-100); Mean Platelet Volume 8.1 fL (7.4-10.4); Platelet Count 301 K/uL (130-400); RDW Coefficient of Variation 13.5 % (11.5-14.5); RDW Standard Deviation 44.7 fL (36.4-46.3); White Blood Count 6.47 K/uL (4.8-10.8)
--- NOTE | 2021-02-17 16:33 | XRay Report ---
XR humerus LT 2V CLINICAL HISTORY: fall COMPARISON: CT of the left shoulder performed earlier today. FINDINGS: Alignment of the left glenohumeral and acromioclavicular joints is anatomic. Note is again made of a displaced comminuted left humeral neck fracture which extends to the proximal shaft. Fract ure is slightly extends into the humeral head. No distal left humeral fracture is present. IMPRESSION: Acute comminuted displaced proximal left humeral fracture, as described above. ACT 112: Negative or not required by law. Electronically signed by: Harlan Larkin M.D. 02/17/2021 4:32 PM
--- NOTE | 2021-02-17 16:34 | XRay Report ---
XR forearm LT 2V CLINICAL HISTORY: fall COMPARISON: None FINDINGS: No acute fracture of the left radius or ulna is identified. Alignment of the left elbow is anatomic. There is no evidence for left elbow joint effusion. IMPRESSION: No acute fracture of the left radius or ulna. ACT 112: Negative or not required by law. Electronically signed by: Harlan Larkin M.D. 02/17/2021 4:33 PM
[2021-02-17 16:38] LABS: BUN Creatinine Ratio 35.9 (10-20); Blood Urea Nitrogen 26 mg/dl (7-18); Calcium 9.3 mg/dl (8.5-10.1); Carbon Dioxide 26 mmol/L (21-32); Chloride 93 mmol/L (98-107); Est GFR (African American) 95.9 ml/min; Est GFR (Non-African American) 82.7 ml/min; Glucose 110 mg/dl (70-99); Potassium 3.9 mmol/L (3.5-5.1); Sodium 125 mmol/L (136-145)
[2021-02-17] MEDS ORDERED: SODIUM CHLORIDE 0.9% 1000ML 1,000 ML IV ONE (16:39)
--- NOTE | 2021-02-17 16:50 | XRay Report ---
XR wrist LT w scaphoid CLINICAL HISTORY: fall COMPARISON: Left hand radiographs November 26, 2020. FINDINGS: Evaluation is suboptimal given difficulty positioning. Note is made of a suspected nondisp laced fracture within the base of the left fifth metacarpal. This age indeterminate. There is a tiny bone fragment adjacent to the fusiform which is also age indeterminate. No acute fracture of the dist al left radius or ulna. Scaphoid is likely intact. IMPRESSION: 1. Suspected nondisplaced fracture within the base of the left fifth metacarpal. This is likely acute to subacute. 2. Tiny bone fragment adjacent to the piriform which is also age indeterminate. ACT 112: Negative or not required by law. Electronically signed by: Harlan Larkin M.D. 02/17/2021 4:49 PM
--- NOTE | 2021-02-17 17:07 | Orthopedic Consultation ---
Date of Service February 17, 2021 Assessment & Plan (1) Closed fracture of left proximal humerus: I discussed with her the diagnosis and treatment options at bedside. We discussed conservative treatment versus open reduction internal fixation. Given the level of displacement of the fracture I did recommend fixation of the left proximal humerus. She understands the risk, benefits, and alternatives to the procedure and elected to proceed. Questions were answered at bedside. The decision was made for surgery. She will be admitted to the medical service overnight and her medical status will be optimized. She is on the operating room schedule for tomorrow morning. She can be n.p.o. past midnight tonight. History of Present Illness Reason for Consultation: Right proximal humerus fracture. Requesting Physician: . Syeda is a pleasant 75-year-old female who lives with her son and his family. She ambulates independently without assistance. She was walking out to the mailbox earlier today. When she came back to going to the house she fell off the first step and fell backwards. She injured her left shoulder. She came to the emergency room where CT scan and radiographs demonstrated a left proximal humeral shaft fracture. Orthopedics was consulted from the emergency room to evaluate and treat.. Allergies Allergy/AdvReac Type Severity Reaction Status Date / Time codeine Allergy Unknown bile duct Verified 11/26/20 20:00 spasm per pt; GI upset nut - unspecified Allergy Unknown HIVES Verified 11/26/20 20:00 ragweed pollen Allergy Unknown INCREASES Verified 11/26/20 20:00 ASTHMA SYMPTOMS,SOB ropinirole Allergy Unknown cant sleep Verified 11/26/20 20:00 morphine AdvReac Intermediate "hot Verified 11/26/20 20:00 flash/ruq pain/vomiting"-PERCOCET IS OK PER PT gabapentin AdvReac Unknown "SWELLING Verified 11/26/20 20:00 OF ANKLES AND WT GAIN" Home Medications Medication Instructions Recorded Confirmed Type albuterol sulfate 2.5 mg INHALATION .INHALE PUFFS 12/15/18 11/26/20 History PRN PRN ml albuterol sulfate 90 mcg/actuation 2 puff INHALATION Q6 PRN gm 12/15/18 11/26/20 History aerosol inhaler calcium carbonate 600 mg calcium 600 mg PO BID tab 12/15/18 11/26/20 History (1,500 mg) tablet cholecalciferol (vitamin D3) 25 1,000 units PO DAILY cap 12/15/18 11/26/20 History mcg (1,000 unit) capsule levothyroxine 100 mcg tablet 100 mcg PO 6XWK tab 12/15/18 11/26/20 History spironolactone 25 mg tablet 25 mg PO DAILY tab 12/15/18 11/26/20 History melatonin 5 mg tablet 5 mg PO HS PRN 06/18/19 11/26/20 History venlafaxine 150 mg 150 mg PO DAILY 10/28/19 11/26/20 History capsule,extended release 24 hr (Effexor XR) betamethasone dipropionate 0.05 % 1 applic TOPICAL BID PRN 02/26/20 11/26/20 History topical ointment denosumab 60 mg/mL subcutaneous 60 mg SUBCUT .[id number] 02/26/20 11/26/20 History syringe (Prolia) fluticasone propionate 230 2 puff INHALATION DAILY 02/26/20 11/26/20 History mcg-salmeterol 21 mcg/actuation HFA inhaler (Advair HFA) hydralazine 25 mg tablet 25 mg PO TID 02/26/20 11/26/20 History levothyroxine 100 mcg tablet 50 mcg PO .QSUN 02/26/20 11/26/20 History lorazepam 0.5 mg tablet 0.5 mg PO TID PRN 02/26/20 11/26/20 History omeprazole 40 mg capsule,delayed 40 mg PO DAILY 02/26/20 11/26/20 History release tiotropium bromide 2.5 2 puff INHALATION DAILY 02/26/20 11/26/20 History mcg/actuation mist for inhalation (Spiriva Respimat) torsemide 20 mg tablet 20 mg PO DAILY PRN 02/26/20 11/26/20 History valsartan 320 mg tablet (Diovan) 320 mg PO DAILY 02/26/20 11/26/20 History carbamazepine 100 mg chewable 200 mg PO BID 90 Days #360 tab 11/02/20 11/26/20 Rx tablet carvedilol 6.25 mg tablet 6.25 mg PO BID 11/26/20 11/26/20 History Past Med/Surg History Medical History Benign paroxysmal positional vertigo (10/22/12) Chest pain (01/16/14) Complex partial seizure Hypertension Lumbar stenosis (05/19/14) Migraine (10/22/12) Surgical History History of back surgery History of cholecystectomy History of knee surgery History of oral surgery Family History Father Stroke Dementia Myocardial infarction Mother Diabetes Stroke Hypertension Social History Smoking Status: Never smoker Hx Alcohol Use: No Hx Substance Use: No Preferred Language: Sri [place]ankan Communication Ability: Effective Coding Specialist Required: No Beliefs That Will Affect Care: None Current Living Situation: Alone Feels Safe at Home: Yes Assistive Devices: Denture - Upper, Denture - Lower and Glasses Review of Systems All systems reviewed & are unremarkable except as noted in HPI & below. Physical Exam On physical examination of the left arm, there is some ecchymosis already anteriorly. There is an obvious anterior deformity. There are no abrasions, lesions, or lacerations of the skin. I am unable to do any range of motion of her shoulder due to the pain.. Constitutional WD/WN, vitals as above Eyes PERRL, conjunctivae normal, anicteric sclerae ENMT external ear and nose normal, oropharynx normal Neck trachea midline, no thyromegaly Respiratory normal respiratory effort Cardiovascular RRR, no murmur, no edema Gastrointestinal (Abdomen) normal bowel sounds, soft, nontender, no hepatosplenomegaly Psychiatric A+Ox3, euthymic affect Results & Data Results & Data Laboratory Results . Diagnostic Findings X-rays of the left shoulder show a significantly displaced left proximal humeral shaft fracture. CT scan of the left shoulder confirms a displaced fracture and shows no further fractures of the tuberosities or the humeral head.. PG Care Time/CCT Total # of Minutes Spent Total Time Spent with Patient: Total time spent is greater than 50% in coordination of care (as documented) at patient's floor/unit and/or counseling patient: Coding Level of Care Code 11153 Inpt Consult Level 4 (57 - DECISION FOR SURGERY) Diagnoses Closed fracture of left proximal humerus S42.202A Encounter type: initial encounter Fracture morphology: unspecified fracture morphology (1) Closed fracture of left proximal humerus Encounter type: initial encounter Fracture morphology: unspecified fracture morphology Qualified Code(s): S42.202A - Unspecified fracture of upper end of left humerus, initial encounter for closed fracture
--- NOTE | 2021-02-17 18:00 | History & Physical Report ---
Date of Service February 17, 2021 Assessment & Plan (1) Fall: (2) Closed fracture of left proximal humerus: Plan: Prior to follow-upPatient is 75-year-old female with PMH HTN, seizure disorder, h/o LLE DVT and PE in 02/2020 and was treated with anticoagulation for 6 months, depression, GERD, asthma presented to ER with complaint of mechanical fall and left shoulder pain. In ER vitals stable. CT head no acute findings. Left humerus x-ray: Acute comminuted displaced proximal left humeral fracture Sling applied in ER Pain control as needed N.p.o. midnight Ortho consult, Dr Avila saw in ER. Plans procedure tomorrow morning Anesthesia consult CBC, BMP in a.m. (3) Hyponatremia: Plan: Na: 125. Was 130 in 10/2020 Monitor (4) HTN (hypertension): Plan: Continue carvedilol, hydralazine, valsartan Hold HCTZ, spironolactone and torsemide and reeval tomorrow (5) Seizure disorder: Plan: Seizure precautions Continue Tegretol Ativan as needed seizure (6) History of pulmonary embolism: Plan: History right LLE DVT and PE in 02/2020. Was thought secondary to being sedentary with pandemic. Was treated with anticoagulant for 6 months (7) Asthma: Plan: No signs of acute exacerbation Albuterol as needed (8) Hypothyroidism: Plan: Continue levothyroxine (9) Depression: Plan: Continue venlafaxine DVT Prophylaxis -SCDs Full Code as per discussion with pt Follows with Dr Valdivia for routine care Pt was seen and care coordinated with Dr Boykin. See addendum History of Present Illness Chief Complaint: Fall and Left shoulder pain Primary Care Provider: Rigoberto Valdivia MD Prior to follow-upPatient is 75-year-old female with PMH HTN, seizure disorder, h/o LLE DVT and PE in 02/2020 and was treated with anticoagulation for 6 months, depression, GERD, asthma presented to ER with complaint of fall and left shoulder pain. Patient states was returning from getting mail and walked up steps and lost balance falling backwards hitting left shoulder. Reports that she was in so much pain she was unable to get off ground by herself complains of left shoulder pain and inability to move left arm. She denies LOC. Denies any shortness of breath, chest pain, dizziness, aura prior to fall. Denies any other injury. Denies fever/chills, diaphoresis, N/V/D/C, ALONSO, vision changes, neck pain, CP, SOB, orthopnea, palpitations, cough, sore throat, choking, otalgia, rhinorrhea, abdominal pain, paresthesias, weakness, extremity edema, rashes, urinary symptoms. In ER vitals stable. CT head no acute findings. Left humerus x-ray: Acute comminuted displaced proximal left humeral fracture Patient being admitted for pain control and possible surgical intervention Allergies Allergy/AdvReac Type Severity Reaction Status Date / Time codeine Allergy Intermediate bile duct Verified 02/17/21 17:45 spasm per pt; GI upset nut - unspecified Allergy Intermediate HIVES Verified 02/17/21 17:45 ragweed pollen Allergy Intermediate INCREASES Verified 02/17/21 17:45 ASTHMA SYMPTOMS,SOB gabapentin AdvReac Intermediate "SWELLING Verified 02/17/21 17:45 OF ANKLES AND WT GAIN" morphine AdvReac Intermediate "hot Verified 02/17/21 17:45 flash/ruq pain/vomiting"-PERCOCET IS OK PER PT ropinirole AdvReac Intermediate cant sleep Verified 02/17/21 17:45 Home Medications Medication Instructions Recorded Confirmed Type albuterol sulfate 2.5 mg INHALATION DIRECTED PRN 12/15/18 02/17/21 History ml albuterol sulfate 90 mcg/actuation 2 puff INHALATION Q6 PRN gm 12/15/18 02/17/21 History aerosol inhaler calcium carbonate 600 mg calcium 600 mg PO BID tab 12/15/18 02/17/21 History (1,500 mg) tablet cholecalciferol (vitamin D3) 25 1,000 units PO DAILY cap 12/15/18 02/17/21 History mcg (1,000 unit) capsule levothyroxine 100 mcg tablet 100 mcg PO 6XWK tab 12/15/18 02/17/21 History spironolactone 25 mg tablet 25 mg PO DAILY tab 12/15/18 02/17/21 History venlafaxine 150 mg 150 mg PO DAILY 10/28/19 02/17/21 History capsule,extended release 24 hr (Effexor XR) betamethasone dipropionate 0.05 % 1 applic TOPICAL BID PRN 02/26/20 02/17/21 History topical ointment denosumab 60 mg/mL subcutaneous 60 mg SUBCUT .[id number] 02/26/20 02/17/21 History syringe (Prolia) hydralazine 25 mg tablet 25 mg PO TID 02/26/20 02/17/21 History levothyroxine 100 mcg tablet 50 mcg PO WK 02/26/20 02/17/21 History lorazepam 0.5 mg tablet 0.5 mg PO TID PRN 02/26/20 02/17/21 History omeprazole 40 mg capsule,delayed 40 mg PO DAILY 02/26/20 02/17/21 History release torsemide 20 mg tablet 20 mg PO DAILY PRN 02/26/20 02/17/21 History valsartan 320 mg tablet (Diovan) 320 mg PO DAILY 02/26/20 02/17/21 History carbamazepine 100 mg chewable 200 mg PO BID 90 Days #360 tab 11/02/20 02/17/21 Rx tablet carvedilol 6.25 mg tablet 6.25 mg PO BID 11/26/20 02/17/21 History hydrochlorothiazide 25 mg tablet 25 mg PO DAILY 02/17/21 02/17/21 History Past Med/Surg History Medical History (Updated 02/17/21 @ 21:05 by Catrina Napier PA-C) Asthma Benign paroxysmal positional vertigo (10/22/12) Chest pain (01/16/14) Complex partial seizure Depression GERD (gastroesophageal reflux disease) History of pulmonary embolism HTN (hypertension) Hypertension Hypothyroidism Lumbar stenosis (05/19/14) Migraine (10/22/12) Seizure disorder Surgical History History of back surgery History of cholecystectomy History of knee surgery History of oral surgery Family History Father Stroke Dementia Myocardial infarction Mother Diabetes Stroke Hypertension Social History Smoking Status: Never smoker Hx Alcohol Use: No Hx Substance Use: No Preferred Language: Polish Communication Ability: Effective Budget Accountant Required: No Beliefs That Will Affect Care: None Current Living Situation: Alone Feels Safe at Home: Yes Assistive Devices: Denture - Upper, Denture - Lower and Glasses Review of Systems Review of Systems: All systems reviewed & are unremarkable except as noted in HPI & below Physical Exam Physical Exam: General: mild distress secondary to left shoulder pain, WDWN Head: normocephalic, atraumatic Eyes: PERRL, EOM's intact, conjunctiva non-injected, anicteric ENT: normal inspection external ears, nose, mucous membranes moist Neck: supple, trachea midline Lungs: clear, no respiratory distress, no wheezing/rhonchi/rales CV: RRR, no murmur, no pretibial edema Abd: normal BS, soft, non-tender Ext: LUE: +edema left shoulder, +ecchymosis anterior shoulder, No ROM attempted, pt able to move left fingers, distal pulses intact, brisk capillary refill. Remaining extremities with normal appearance, ROM intact. Neuro: A&O x 3, no focal deficits noted, normal affect Skin: warm, dry Results & Data Results & Data ([facility]) Vital Signs (Past 12 Hours) Vital Signs Temp Pulse Pulse Resp BP BP Pulse Ox 02/17/21 17:00 97 H 20 151/71 H 97 02/17/21 16:30 63 20 153/79 H 97 02/17/21 15:30 63 20 160/74 H 96 02/17/21 14:00 36.8 C 69 62 20 173/78 H 163/77 H 97 Laboratory Results Short CBC 02/17/21 Range/Units 16:02 WBC 6.47 (4.8-10.8) K/uL Hgb 12.2 (12.0-16.0) g/dL Hct 35.2 L (37-47) % Plt Count 301 (130-400) K/uL BMP 02/17/21 16:02 Sodium 125 L Potassium 3.9 Chloride 93 L Carbon Dioxide 26 BUN 26 H Creatinine 0.71 Glucose 110 H Calcium 9.3 Diagnostic Findings Cervical Spine CT 02/17/21 14:20 CT OF THE CERVICAL SPINE WITHOUT CONTRAST CLINICAL HISTORY: fall COMPARISON STUDY: No previous studies for comparison. TECHNIQUE: Helical axial images of the cervical spine were obtained without IV contrast. Sagittal and coronal reconstructions were viewed. Automated exposure control was utilized for the study. A dose lowering technique was utilized adhering to the principles of ALARA. FINDINGS: Alignment of the cervical spine is anatomic. Vertebral body heights are maintained. No acute cervical spine fracture or subluxation is present. There is no prevertebral edema. Facet joints are intact. Jacket Preparer image demonstrates a proximal left humeral fracture which is better depicted on the CT of the left shoulder. Degenerative changes at the C1-C2 articulation are noted. There is mild multilevel facet arthrosis within the cervical spine. IMPRESSION: No acute cervical spine fracture or subluxation. ACT 112: Negative or not required by law. Electronically signed by: Harlan Larkin M.D. 02/17/2021 3:[address] 02/17/21 14:[address] DOSE: HISTORY: fall TECHNIQUE: Multiaxial CT images of the head were performed without the use of intravenous contrast. Automated exposure control was utilized for this study. A dose lowering technique was utilized adhering to the principles of ALARA. Comparison: Head CT 11/26/2020. Findings: The paranasal sinuses and mastoid air cells are clear. The calvarium and skull base are intact. There is no mass, hematoma, midline shift, acute infarct. White matter hypodensity is nonspecific but suggestive of microvascular ischemic change. The ventricles and sulci demonstrate mild age-related involutional changes. Impression: No significant change compared to the prior study. No acute intracranial abnormality. ACT 112: Negative or not required by law. Electronically signed by: Cade Gutierres M.D. 02/17/2021 3:[address] 02/17/21 14:[address] DOSE: HISTORY: Left shoulder pain. fall TECHNIQUE: Multiaxial CT images of the left shoulder were performed and reformatted in the sagittal and coronal plane without the use of contrast. A dose lowering technique was utilized adhering to the principles of ALARA. COMPARISON: None. FINDINGS: There is a displaced and slightly comminuted oblique fracture within the proximal metaphysis of the left humerus which extends to the left humeral neck. No fractures of the left humeral head. No dislocation at the glenohumeral joint. The left clavicle is intact. The fracture demonstrates up to 2 cm of anterior displacement and 2 cm of overlap. The scapula appears intact. Anterior soft tissue swelling/contusion is noted within the left shoulder. IMPRESSION: Slightly comminuted and displaced fracture within the left humeral neck/proximal shaft as described above. No dislocation. ACT 112: Negative or not required by law. Electronically signed by: Cade Gutierres M.D. 02/17/2021 3:29 PM Forearm X-Ray 02/17/21 15:42 XR forearm LT 2V CLINICAL HISTORY: fall COMPARISON: None FINDINGS: No acute fracture of the left radius or ulna is identified. Alignment of the left elbow is anatomic. There is no evidence for left elbow joint effusion. IMPRESSION: No acute fracture of the left radius or ulna. ACT 112: Negative or not required by law. Electronically signed by: Harlan Larkin M.D. 02/17/2021 4:33 PM Humerus X-Ray 02/17/21 15:42 XR humerus LT 2V CLINICAL HISTORY: fall COMPARISON: CT of the left shoulder performed earlier today. FINDINGS: Alignment of the left glenohumeral and acromioclavicular joints is anatomic. Note is again made of a displaced comminuted left humeral neck fract ure which extends to the proximal shaft. Fracture is slightly extends into the humeral head. No distal left humeral fracture is present. IMPRESSION: Acute comminuted displaced proximal left humeral fracture, as described above. ACT 112: Negative or not required by law. Electronically signed by: Harlan Larkin M.D. 02/17/2021 4:32 PM Wrist X-Ray 02/17/21 15:42 XR wrist LT w scaphoid CLINICAL HISTORY: fall COMPARISON: Left hand radiographs November 26, 2020. FINDINGS: Evaluation is suboptimal given difficulty positioning. Note is made of a suspected nondisplaced fracture within the base of the left fifth metacarpal. This age indeterminate. There is a tiny bone fragment adjacent to the fusiform which is also age indeterminate. No acute fracture of the distal left radius or ulna. Scaphoid is likely intact. IMPRESSION: 1. Suspected nondisplaced fracture within the base of the left fifth metacarpal. This is likely acute to subacute. 2. Tiny bone fragment adjacent to the piriform which is also age indeterminate. ACT 112: Negative or not required by law. Electronically signed by: Harlan Larkin M.D. 02/17/2021 4:49 PM Code Status & VTE Plan VTE Prophylaxis Plan VTE Prophylaxis will be ordered: Yes (1) Fall Encounter type: initial encounter Qualified Code(s): W19.XXXA - Unspecified fall, initial encounter (2) Closed fracture of left proximal humerus Encounter type: initial encounter Fracture morphology: unspecified fracture morphology Qualified Code(s): S42.202A - Unspecified fracture of upper end of left humerus, initial encounter for closed fracture
[2021-02-17] MEDS ORDERED: NALOXONE HCL 0.4 MG/1 ML VIAL/CARP IV PRN (20:41)
[2021-02-17] MEDS ORDERED: ALBUTEROL 0.083% NEBU SOLN 3 ML VIAL NEB PRN (20:41)
[2021-02-17] MEDS ORDERED: LORazepam 0.5 MG TAB PO PRN (20:41)
[2021-02-17] MEDS ORDERED: LORazepam 1 MG/2 ML VIAL IV PRN (20:41)
[2021-02-17] MEDS ORDERED: ACETAMINOPHEN 325 MG TAB PO PRN (20:41)
[2021-02-17] MEDS ORDERED: POLYETHYLENE (MIRALAX) 17 GM PACK PO PRN (20:41)
[2021-02-17] MEDS ORDERED: MAGNESIUM HYDROXIDE SUSP 30 ML UDC PO PRN (20:41)
[2021-02-17] MEDS ORDERED: HYDROmorphone INJ 0.5 MG/0.5 ML SYR IV PRN (20:41)
[2021-02-17] MEDS: oxyCODONE HCL IR 5 MG TAB (IMMEDIATE RELEASE) PO PRN (21:18)
[2021-02-17] MEDS: SODIUM CHLORIDE 0.9% 1000ML 1,000 ML IV SCH (21:21)
[2021-02-17] MEDS: ONDANSETRON INJ 2 MG/ML 2 ML VIAL IV PRN (21:27)
[2021-02-17] MEDS: carBAMazepine 100 MG CHEW TAB PO SCH (22:56)
[2021-02-17] MEDS: hydrALAZINE HCL 25 MG TAB PO SCH (22:57)
[2021-02-17] MEDS: carvediloL 6.25 MG TAB PO SCH (22:57)
[2021-02-18 06:23] LABS: Hematocrit (blood only) 31.7 % (37-47); Hemoglobin 10.8 g/dL (12.0-16.0); Mean Corpuscular Hemoglobin 30.7 pg (25-34); Mean Corpuscular Hgb Conc 34.1 g/dL (32-36); Mean Corpuscular Volume 90.1 fL (80-100); Mean Platelet Volume 7.9 fL (7.4-10.4); Platelet Count 280 K/uL (130-400); RDW Coefficient of Variation 13.7 % (11.5-14.5); RDW Standard Deviation 45.9 fL (36.4-46.3); Red Blood Count 3.52 M/uL (4.2-5.4); White Blood Count 5.55 K/uL (4.8-10.8)
[2021-02-18] MEDS ORDERED: LEVOTHYROXINE SODIUM 100 MCG TABLET PO SCH (06:30)
[2021-02-18 06:33] LABS: Partial Thromboplastin Time 26.3 Seconds (21.0-31.0); Prothrombin Time 10.4 Seconds (9.0-12.0)
[2021-02-18 06:50] LABS: BUN Creatinine Ratio 33.5 (10-20); Calcium 8.1 mg/dl (8.5-10.1); Creatinine Clr Calc Pharmacy 74.6 ml/min; Est GFR (African American) 103.2 ml/min; Potassium 3.6 mmol/L (3.5-5.1)
--- NOTE | 2021-02-18 07:31 | Anesthesiology Consultation ---
Date of Service February 18, 2021 History Surgery Operation Date: 02/18/21 09:00 Proposed Procedures p Open Reduction Internal Fixation Left Proximal Humerus - Zeeshan Avila, Height/Weight Height: 5 ft 3 in Weight: 67.1 kg Allergies Allergy/AdvReac Type Severity Reaction Status Date / Time codeine Allergy Intermediate bile duct Verified 02/17/21 17:45 spasm per pt; GI upset nut - unspecified Allergy Intermediate HIVES Verified 02/17/21 17:45 ragweed pollen Allergy Intermediate INCREASES Verified 02/17/21 17:45 ASTHMA SYMPTOMS,SOB gabapentin AdvReac Intermediate "SWELLING Verified 02/17/21 17:45 OF ANKLES AND WT GAIN" morphine AdvReac Intermediate "hot Verified 02/17/21 17:45 flash/ruq pain/vomiting"-PERCOCET IS OK PER PT ropinirole AdvReac Intermediate cant sleep Verified 02/17/21 17:45 Medications Home Medications Medication Instructions Recorded Confirmed Last Taken albuterol sulfate 2.5 mg INHALATION DIRECTED PRN 12/15/18 02/17/21 Unknown ml albuterol sulfate 90 mcg/actuation 2 puff INHALATION Q6 PRN gm 12/15/18 02/17/21 Unknown aerosol inhaler calcium carbonate 600 mg calcium 600 mg PO BID tab 12/15/18 02/17/21 02/17/21 08:00 (1,500 mg) tablet cholecalciferol (vitamin D3) 25 1,000 units PO DAILY cap 12/15/18 02/17/21 02/17/21 mcg (1,000 unit) capsule levothyroxine 100 mcg tablet 100 mcg PO 6XWK tab 12/15/18 02/17/21 02/17/21 spironolactone 25 mg tablet 25 mg PO DAILY tab 12/15/18 02/17/21 02/17/21 venlafaxine 150 mg 150 mg PO DAILY 10/28/19 02/17/21 02/17/21 capsule,extended release 24 hr (Effexor XR) betamethasone dipropionate 0.05 % 1 applic TOPICAL BID PRN 02/26/20 02/17/21 Unknown topical ointment denosumab 60 mg/mL subcutaneous 60 mg SUBCUT .[id number] 02/26/20 02/17/21 Unknown syringe (Prolia) hydralazine 25 mg tablet 25 mg PO TID 02/26/20 02/17/21 02/17/21 08:00 levothyroxine 100 mcg tablet 50 mcg PO WK 02/26/20 02/17/21 02/12/21 lorazepam 0.5 mg tablet 0.5 mg PO TID PRN 02/26/20 02/17/21 Unknown omeprazole 40 mg capsule,delayed 40 mg PO DAILY 02/26/20 02/17/21 02/17/21 release torsemide 20 mg tablet 20 mg PO DAILY PRN 02/26/20 02/17/21 Unknown valsartan 320 mg tablet (Diovan) 320 mg PO DAILY 02/26/20 02/17/21 02/17/21 carbamazepine 100 mg chewable 200 mg PO BID 90 Days #360 tab 11/02/20 02/17/21 02/17/21 08:00 tablet carvedilol 6.25 mg tablet 6.25 mg PO BID 11/26/20 02/17/21 02/17/21 08:00 hydrochlorothiazide 25 mg tablet 25 mg PO DAILY 02/17/21 02/17/21 02/17/21 Active Medications Generic Name Dose Route Start Last Admin Trade Name Freq PRN Reason Stop Dose Admin Carbamazepine 200 mg 02/17/21 21:00 02/17/21 22:56 Carbamazepine 100 Mg Chew Tab PO 03/19/21 20:59 200 mg BID CATHY Administration Carvedilol 6.25 mg 02/17/21 21:00 02/17/21 22:57 Carvedilol 6.25 Mg Tab PO 03/19/21 20:59 6.25 mg BID CATHY Administration Hydralazine HCl 25 mg 02/17/21 21:00 02/17/21 22:57 Hydralazine Hcl 25 Mg Tab PO 03/19/21 20:59 25 mg TID CATHY Administration Sodium Chloride 1,000 mls @ 80 mls/hr 02/17/21 21:00 02/17/21 21:21 Nss 1000ml IV 03/19/21 20:59 80 mls/hr .[id number] CATHY Administration Levothyroxine Sodium 100 mcg 02/18/21 06:30 02/18/21 07:10 Levothyroxine Sodium 100 Mcg Tablet PO 03/20/21 06:29 100 mcg [id number] CATHY Administration Miscellaneous 1 ea 02/18/21 00:00 02/18/21 00:47 Betamethasone Dipropionate 0.05 % Ointment~Order Awaiting Action N/A 03/20/21 00:00 Not Given QS CATHY Ondansetron HCl 4 mg 02/17/21 20:41 02/17/21 21:27 Ondansetron Inj 2 Mg/Ml 2 Ml Vial IV 03/19/21 20:40 4 mg Q6H PRN Administration Nausea Oxycodone HCl 5 mg 02/17/21 20:41 02/17/21 21:18 Oxycodone Hcl Ir 5 Mg Tab (Immediate Release) PO 03/03/21 20:40 5 mg Q6H PRN Administration Moderate Pain Past Medical History Medical History Asthma Benign paroxysmal positional vertigo (10/22/12) Chest pain (01/16/14) Complex partial seizure Depression GERD (gastroesophageal reflux disease) History of pulmonary embolism HTN (hypertension) Hypertension Hypothyroidism Lumbar stenosis (05/19/14) Migraine (10/22/12) Seizure disorder Past Family History Family History Father Stroke Dementia Myocardial infarction Mother Diabetes Stroke Hypertension Past Surgical History Surgical History History of back surgery History of cholecystectomy History of knee surgery History of oral surgery Social History Smoking Status: Never smoker Hx Alcohol Use: No Hx Substance Use: No substance use type: does not use Physical Exam Vital Signs Last Vital Signs Temp 36.7 C 02/17/21 20:35 Pulse 75 02/17/21 22:53 Resp 16 02/17/21 20:35 BP 134/70 02/17/21 22:53 Pulse Ox 96 02/17/21 22:53 Testing Laboratory Results 02/18/21 06:13 02/18/21 06:13 PT 10.4 Seconds (9.0-12.0) 02/18/21 06:13 INR 1.0 (0.9-1.1) 02/18/21 06:13 APTT 26.3 Seconds (21.0-31.0) 02/18/21 06:13 Electrocardiogram Date: 02/26/20 Findings: + NSR @ (73) and + poor R wave progression Echocardiogram Date: 06/18/19 EF: 60-65% LV Function: normal Valvular Disease: + no significant valvular disease
[2021-02-18] MEDS: PANTOprazole 40 MG TAB PO SCH (07:33)
[2021-02-18] MEDS: VALSARTAN 80 MG TAB PO SCH (07:33)
[2021-02-18] MEDS: hydrALAZINE HCL 25 MG TAB PO SCH ×3 (07:33→20:57)
[2021-02-18] MEDS: VENLAFAXINE HCL XR 150 MG CAPXR PO SCH (07:33)
[2021-02-18] MEDS: carvediloL 6.25 MG TAB PO SCH ×2 (07:33→20:56)
[2021-02-18] MEDS: CHOLECALCIFEROL 1,000 UNITS 25 MCG TAB PO SCH (07:34)
[2021-02-18] MEDS: carBAMazepine 100 MG CHEW TAB PO SCH ×2 (07:34→20:56)
[2021-02-18] MEDS: CALCIUM CARBONATE 1250MG TAB PO SCH ×2 (07:34→20:55)
[2021-02-18] MEDS ORDERED: INFLUENZA VACCINE HIGH DOSE PF 65+ 0.7 ML SYR IM ONE (08:00)
[2021-02-18] MEDS ORDERED: BUPIVACAINE 0.25% 30 ML VIAL ONE (08:17)
[2021-02-18] MEDS: ONDANSETRON INJ 2 MG/ML 2 ML VIAL IV PRN (08:53)
[2021-02-18] MEDS: oxyCODONE HCL IR 5 MG TAB (IMMEDIATE RELEASE) PO PRN (08:53)
[2021-02-18] MEDS: SODIUM CHLORIDE 0.9% 1000ML 1,000 ML IV SCH ×2 (09:02→14:49)
--- NOTE | 2021-02-18 09:46 | Hospitalist Progress Note ---
Date of Service February 18, 2021 Assessment & Plan (1) Fall: (2) Closed fracture of left proximal humerus: Plan: Prior to follow-upPatient is 75-year-old female with PMH HTN, seizure disorder, h/o LLE DVT and PE in 02/2020 and was treated with anticoagulation for 6 months, depression, GERD, asthma presented to ER with complaint of mechanical fall and left shoulder pain. Left humerus x-ray showed Acute comminuted displaced proximal left humeral fracture CT head showed no acute intracranial abnormality Continue pain control Plan to go to OR today Daughter said that before the fall pt was able to walk to the mailbox with no chest discomfort and SOB Denies any chest pain, palpitation, dizziness and SOB CXR showed no acute process EKG showed no acute ischemic changes Surgery risks discussed with patient and daughter on admission such as bleeding, blood clot, infection, heart attack and even Ortho will explain the procedure in details and obtained consent Pt is stable to proceed with the procedure Keep NPO for now (3) Hyponatremia: Plan: Na: 125. Was 130 in 10/2020 na 130 today Continue monitor BMP (4) HTN (hypertension): Plan: Continue carvedilol, hydralazine, valsartan Hold HCTZ, spironolactone and torsemide and reeval tomorrow (5) Seizure disorder: Plan: Seizure precautions Continue Tegretol Ativan as needed seizure (6) History of pulmonary embolism: Plan: History right LLE DVT and PE in 02/2020. Was thought secondary to being sedentary with pandemic. Was treated with anticoagulant for 6 months (7) Asthma: Plan: No signs of acute exacerbation Albuterol as needed (8) Hypothyroidism: Plan: Continue levothyroxine (9) Depression: Plan: Continue venlafaxine DVT Prophylaxis -SCDs for now Full Code as per discussion with pt Follows with Dr Valdivia for routine care Admission and Anticipated Discharge Date Admission Date: February 17, 2021 Subjective Pt was seen and examined for follow up of left shoulder fracture Lying in bed with no acute distress Pt said that pain control with the pain med She is scheduledd to go to OR this morning Denies any chest pain, palpitation, dizziness and SOB Review of Systems Review of Systems: All systems reviewed & are unremarkable except as noted in Subjective Physical Exam Physical Exam: General- No acute distress Head- atraumatic Eyes- PERRL, EOMI, ENT- oropharynx clear Neck- supple, no JVD Lungs- clear to auscultation Heart- regular rhythm; no murmur Abdomen- normal bowel sounds, soft, nontender Extremities- no calf tenderness, left shoulder tenderness Neuro- alert, oriented x 3; PERRL, EOMI; no facial palsy; no dysarthria Skin- warm & dry Results & Data Results & Data ([facility]) Vital Signs (Past 12 Hours) Vital Signs Temp Pulse Pulse Resp BP Pulse Ox 02/18/21 07:35 37.1 C 94 H 22 112/78 92 02/17/21 22:53 75 134/70 96 (1) Fall Encounter type: initial encounter Qualified Code(s): W19.XXXA - Unspecified fall, initial encounter (2) Closed fracture of left proximal humerus Encounter type: initial encounter Fracture morphology: unspecified fracture morphology Qualified Code(s): S42.202A - Unspecified fracture of upper end of left humerus, initial encounter for closed fracture
[2021-02-18] MEDS ORDERED: PROPOFOL IV EMULSION 10 MG/ML 20 ML VIAL IV ONE (10:14)
[2021-02-18] MEDS ORDERED: ONDANSETRON INJ 2 MG/ML 2 ML VIAL ONE ×2 (10:14→13:31)
[2021-02-18] MEDS ORDERED: MIDAZOLAM HCL 1 MG/ML 2ML VIAL ONE ×2 (10:14→10:40)
[2021-02-18] MEDS ORDERED: fentaNYL citrate 100 MCG/2 ML VIAL ONE (10:14)
[2021-02-18] MEDS ORDERED: LIDOCAINE 2% 2 ML VIAL/AMP(20MG/ML) INFIL ONE (10:14)
[2021-02-18] MEDS ORDERED: ATROPINE SULFATE 0.1 MG/ML 10ML SYR IV PRN (11:29)
[2021-02-18] MEDS ORDERED: PROMETHAZINE HCL 6.25 MG in SODIUM CHLORIDE 0.9% 50 ML IV PRN (11:29)
[2021-02-18] MEDS ORDERED: ONDANSETRON INJ 2 MG/ML 2 ML VIAL IV PRN (11:29)
[2021-02-18] MEDS ORDERED: fentaNYL citrate 100 MCG/2 ML VIAL IV PRN (11:29)
[2021-02-18] MEDS ORDERED: ALBUTEROL 0.083% NEBU SOLN 3 ML VIAL INH PRN (11:29)
--- NOTE | 2021-02-18 11:37 | History & Physical Bridge Note ---
Date of Service February 18, 2021 History & Physical Bridge Note I have examined the patient, reviewed the History & Physical and in the interval since the performance of the History & Physical I have noted the following changes of clinical significance: no changes noted
[2021-02-18] MEDS ORDERED: ceFAZolin 1000MG 1,000 MG/7.5 ML SYR IV ONE (12:38)
[2021-02-18] MEDS ORDERED: ePHEDrine sulfate 50 MG/ML SYR ONE (12:57)
[2021-02-18] MEDS ORDERED: GLYCOPYRROLATE 0.2 MG/ML VIAL ONE ×2 (12:57→13:17)
[2021-02-18] MEDS ORDERED: PHENYLEPHRINE HCL 10 MG/ML VIAL ONE (12:57)
[2021-02-18] MEDS ORDERED: PHENYLEPHRINE 100MCG/ML 5ML SYR ONE (12:57)
[2021-02-18] MEDS ORDERED: DEXAMETHASONE SOD INJ 4 MG/ML VIAL ONE (13:10)
[2021-02-18] MEDS ORDERED: NEOSTIGMINE METHYLSULFATE 1 MG/ML 10ML VIAL ONE (13:17)
--- NOTE | 2021-02-18 13:35 | Operative Report ---
PG Post Operative Report Pre & Post Diagnosis Operation Date: 02/18/21 09:00 Pre-Op Diagnosis: Left proximal humerus fracture with tendinopathy long head of the biceps tendon Post-Op Diagnosis: Left proximal humerus fracture with tendinopathy of the long head of the biceps tendon I identified the patient and participated in the time-out.: Yes Procedure Operation Date: 02/18/21 09:00 Actual Procedures p Open Reduction Internal Fixation Left Proximal Humerus(Left) with open biceps tenodesis as a distinct and separate procedure (modifier 59)- Zeeshan Avila DO Surgeon Zeesahn Avila DO Bee Rancher Xavier Lopez PAC Estimated Blood Loss 150 Findings Consistent with Post-Op Diagnosis Specimens None Complications none Disposition Disposition: Recovery Room Indications Syeda is a pleasant 75-year-old female who fell hard yesterday sustaining a left proximal humerus fracture. X-rays and CT scan confirmed the diagnosis. She was admitted to the ankle service and orthopedics was consulted to evaluate. After discussions at bedside, I recommended open reduction internal fixation. She elected to proceed. Description of Procedure A CPT code modifier 59: The long head of the biceps tendon was enlarged and inflamed consistent with a displaced fracture.. A tenodesis was opted. This was a separate and distinct portion of the procedure. For these reasons, a CPT code modifier 59 will be added to this case. On February 18, 2021 Syeda was brought down from her hospital room to the preoperative holding area. The operative extremity identified and signed. She is given a preoperative antibiotic and a left interscalene nerve block. She was taken back to the operating room and laid on the table in supine position. She was put under general anesthesia. She was put into the beachchair position. The left shoulder was prepped and draped in sterile fashion. A timeout was done. The patient and the operative extremity was properly identified. A deltopectoral approach was used. Dissection was taken down through the fascia and the deltoid was retracted laterally and the conjoined tendon was retracted medially. The fracture was easily exposed. The long head of the biceps tendon was then tenodesed to the upper border of the pectoralis major and the remainder of the tendon was discarded. This was a distinct and separate procedure. The fracture planes were identified. The wound was then irrigated with normal saline solution with pulse lavage. The fracture was then reduced. K wires were placed to hold the fracture in place. Fluoroscopic images showed anatomic alignment of the fracture. A Synthes 3 hole proximal humeral locking plate was then placed. The appropriate alignment was checked on fluoroscopy. A single compression screw was placed in the combination hole. I was happy with the overall alignment and the fracture reduction. A single proximal locking screw was then placed. The K wires were then removed. Fluoroscopic images showed anatomic alignment of the hardware and the fracture. The remaining locking screws were then placed both proximally and distally. Appropriate screw lengths were checked on orthogonal fluoroscopic images. The wound was then irrigated. The axillary nerve was palpated. The deltopectoral fascia was closed with 2-0 Vicryl. Skin was closed with 3-0 Vicryl and red. A Silverlon dressing was placed. She was then placed in a regular arm sling. She was then extubated and transferred to a [facility]. She was taken to the post anesthesia care unit in stable condition. She tolerated procedure well. Xavier Lopez PA-C, was present for the entire procedure. He was critical for patient positioning, prepping, draping, retraction exposure, wound closure and application of sterile dressing. I attest to the content of the Intraoperative Record and any orders documented therein. Any exceptions are noted below.
--- NOTE | 2021-02-18 13:35 | Fluoroscopy Report ---
FL humerus LT 2V HISTORY: 75 years-old Female LT HUMERUS ORIF acute fracture of the proximal left humerus COMPARISON: Radiographs 02/17/2021 TECHNIQUE: 2 spot fluoroscopic images of the left humerus were obtained utilizing 32.4 seconds fluoro scopy time FINDINGS: Status post ORIF of the acute left proximal humeral fracture with plate and screw fusion. There is im proved alignment. No unexpected opaque foreign body. IMPRESSION: Fluoroscopic assistance as above. ACT 112: Negative or not required by law. The above report was generated using voice recognition software. It may contain grammatical, syntax o r spelling errors. Electronically signed by: Riaz Aguilar M.D. 02/18/2021 1:34 PM
[2021-02-18] MEDS ORDERED: bisacodyL 10 MG SUPP PR PRN (13:36)
[2021-02-18] MEDS ORDERED: MAGNESIUM HYDROXIDE SUSP 30 ML UDC PO PRN (13:36)
[2021-02-18] MEDS ORDERED: NALOXONE HCL 0.4 MG/1 ML VIAL/CARP IV PRN (13:36)
[2021-02-18] MEDS ORDERED: METOCLOPRAMIDE HCL INJ 5 MG/ML 2 ML VIAL IV PRN (13:36)
--- NOTE | 2021-02-18 14:22 | Anesthesiology Progress Note ---
Date of Service February 18, 2021 Anesthesia Post Procedure Vital Signs Vital Signs: Temp Pulse Pulse Pulse Resp BP Pulse Ox 02/18/21 14:19 62 14 96/53 L 96 02/18/21 14:10 64 16 97/51 L 96 02/18/21 14:00 64 16 91/59 L 100 02/18/21 13:50 36.1 C L 70 12 107/45 L 100 02/18/21 07:35 37.1 C 94 H 22 112/78 92 02/17/21 22:53 75 134/70 96 02/17/21 20:35 36.7 C 61 16 152/76 H 99 02/17/21 18:30 69 18 152/76 H 96 02/17/21 17:30 72 20 145/70 H 98 02/17/21 17:00 97 H 20 151/71 H 97 02/17/21 16:30 63 20 153/79 H 97 02/17/21 15:30 63 20 160/74 H 96 Pain Intensity Left Shoulder: Pain Intensity: 9 Transfer of Care Handoff Completed per policy Notes Mental Status: alert / awake / arousable Patient Amnestic to Procedure: Yes Nausea / Vomiting: adequately controlled Pain: adequately controlled Airway Patency, RR, SpO2: stable & adequate BP & HR: stable & adequate Hydration State: stable & adequate Anesthetic Complications: no major complications apparent
[2021-02-18] MEDS: ceFAZolin 1000MG 1,000 MG/7.5 ML SYR IV SCH (20:54)
[2021-02-18] MEDS: DOCUSATE SODIUM 100 MG CAP PO SCH (20:57)
[2021-02-18] MEDS ORDERED: SENNA 8.6 MG TAB PO SCH (21:00)
[2021-02-19] MEDS: SODIUM CHLORIDE 0.9% 1000ML 1,000 ML IV SCH (00:14)
[2021-02-19] MEDS: ceFAZolin 1000MG 1,000 MG/7.5 ML SYR IV SCH (04:41)
[2021-02-19] MEDS: oxyCODONE HCL IR 5 MG TAB (IMMEDIATE RELEASE) PO PRN (06:00)
[2021-02-19] MEDS: ONDANSETRON INJ 2 MG/ML 2 ML VIAL IV PRN (06:01)
[2021-02-19] MEDS ORDERED: LEVOTHYROXINE SODIUM 50 MCG TABLET PO SCH (06:30)
[2021-02-19] MEDS ORDERED: MULTIVITAMIN TAB PO SCH (09:00)
[2021-02-19 09:14] LABS: Basophils # (auto) 0.01 K/uL (0-0.2); Basophils % (auto) 0.1 %; Eosinophils # (auto) 0.04 K/uL (0-0.5); Eosinophils % (auto) 0.5 %; Hematocrit (blood only) 28.6 % (37-47); Hemoglobin 9.9 g/dL (12.0-16.0); Lymphocytes # (auto) 0.52 K/uL (1.2-3.4); Lymphocytes % (auto) 7.1 %; Mean Corpuscular Hemoglobin 31.6 pg (25-34); Mean Corpuscular Hgb Conc 34.6 g/dL (32-36); Mean Corpuscular Volume 91.4 fL (80-100); Mean Platelet Volume 7.9 fL (7.4-10.4); Monocytes # (auto) 1.27 K/uL (0.11-0.59); Monocytes % (auto) 17.2 %; Neutrophils # (auto) 5.53 K/uL (1.4-6.5); Neutrophils % (auto) 75.1 %; Platelet Count 255 K/uL (130-400); RDW Standard Deviation 46.6 fL (36.4-46.3); Red Blood Count 3.13 M/uL (4.2-5.4); White Blood Count 7.37 K/uL (4.8-10.8)
[2021-02-19 09:32] LABS: BUN Creatinine Ratio 28.4 (10-20); Calcium 8.5 mg/dl (8.5-10.1); Est GFR (African American) 101.5 ml/min; Est GFR (Non-African American) 87.6 ml/min; Potassium 3.9 mmol/L (3.5-5.1)
[2021-02-19] MEDS: carBAMazepine 100 MG CHEW TAB PO SCH (09:40)
[2021-02-19] MEDS: CALCIUM CARBONATE 1250MG TAB PO SCH (09:40)
[2021-02-19] MEDS: hydrALAZINE HCL 25 MG TAB PO SCH ×2 (09:41→14:35)
[2021-02-19] MEDS: carvediloL 6.25 MG TAB PO SCH (09:41)
[2021-02-19] MEDS: CHOLECALCIFEROL 1,000 UNITS 25 MCG TAB PO SCH (09:41)
[2021-02-19] MEDS: DOCUSATE SODIUM 100 MG CAP PO SCH (09:41)
[2021-02-19] MEDS: PANTOprazole 40 MG TAB PO SCH (09:42)
[2021-02-19] MEDS: VENLAFAXINE HCL XR 150 MG CAPXR PO SCH (09:42)
[2021-02-19] MEDS: VALSARTAN 80 MG TAB PO SCH (09:42)
--- NOTE | 2021-02-19 15:04 | Orthopedic Progress Note ---
Date of Service February 19, 2021 Assessment & Plan (1) Closed fracture of left proximal humerus: Overall she is doing fairly well. She is not having much pain in the left shoulder. She is orthopedically stable for discharge when medically ready. We will hold off on therapy for 6 weeks. Full orthopedic discharge instructions were placed in the discharge summary. We will see her in the office in 2 weeks for staple removal. Orthopedics will sign off. If you have any questions please feel free to contact me personally at [phone]. Chun Landa was seen and examined at bedside. Overall she is doing very well. She not been too much pain in the left shoulder. She has no complaints.. Review of Systems All systems reviewed & are unremarkable except as noted in HPI & below. Physical Exam On physical examination of left shoulder, the dressing is clean and dry. Her radial, median, and ulnar nerves are checked intact at her wrist. She is wearing her sling as instructed.. Results & Data Results & Data Laboratory Results . Diagnostic Findings . PG Care Time/CCT Total # of Minutes Spent Total Time Spent with Patient: Total time spent is greater than 50% in coordination of care (as documented) at patient's floor/unit and/or counseling patient: Coding Level of Care Code 11469 Post Operative Follow-Up Diagnoses Closed fracture of left proximal humerus S42.A Encounter type: initial encounter Fracture morphology: unspecified fracture morphology (1) Closed fracture of left proximal humerus Encounter type: initial encounter Fracture morphology: unspecified fracture morphology Qualified Code(s): S42.202A - Unspecified fracture of upper end of left humerus, initial encounter for closed fracture
--- NOTE | 2021-02-19 16:04 | Discharge Summary ---
Date of Service February 19, 2021 Admission HPI Per Admitting Provider Prior to follow-upPatient is 75-year-old female with PMH HTN, seizure disorder, h/o LLE DVT and PE in 02/2020 and was treated with anticoagulation for 6 months, depression, GERD, asthma presented to ER with complaint of fall and left shoulder pain. Patient states was returning from getting mail and walked up steps and lost balance falling backwards hitting left shoulder. Reports that she was in so much pain she was unable to get off ground by herself complains of left shoulder pain and inability to move left arm. She denies LOC. Denies any shortness of breath, chest pain, dizziness, aura prior to fall. Denies any other injury. Denies fever/chills, diaphoresis, N/V/D/C, ALONSO, vision changes, neck pain, CP, SOB, orthopnea, palpitations, cough, sore throat, choking, otalgia, rhinorrhea, abdominal pain, paresthesias, weakness, extremity edema, rashes, urinary symptoms. In ER vitals stable. CT head no acute findings. Left humerus x-ray: Acute comminuted displaced proximal left humeral fracture Patient being admitted for pain control and possible surgical intervention Discharge Data Allergies Allergy/AdvReac Type Severity Reaction Status Date / Time codeine Allergy Intermediate bile duct Verified 02/17/21 17:45 spasm per pt; GI upset nut - unspecified Allergy Intermediate HIVES Verified 02/17/21 17:45 ragweed pollen Allergy Intermediate INCREASES Verified 02/17/21 17:45 ASTHMA SYMPTOMS,SOB gabapentin AdvReac Intermediate "SWELLING Verified 02/17/21 17:45 OF ANKLES AND WT GAIN" morphine AdvReac Intermediate "hot Verified 02/17/21 17:45 flash/ruq pain/vomiting"-PERCOCET IS OK PER PT ropinirole AdvReac Intermediate cant sleep Verified 02/17/21 17:45 Consultations 02/17/21 16:49 ED Decision to Admit Stat 02/17/21 17:19 Consult Orthopedic Surgery Routine 02/17/21 18:08 Consult Anesthesiology Routine Procedures Performed Operation Date: 02/18/21 09:00 Actual Procedures p Open Reduction Internal Fixation Left Proximal Humerus(Left) - Zeeshan Avila, Ordered Studies 02/17/21 14:20 CT cervical spine wo con Stat CT head/brain wo con Stat CT shoulder LT wo con Stat 02/18/21 FL humerus LT 2V Routine 02/18/21 08:27 US - OR guided needle placemen Routine Hospital Course (1) Fall: (2) Closed fracture of left proximal humerus: Prior to follow-upPatient is 75-year-old female with PMH HTN, seizure disorder, h/o LLE DVT and PE in 02/2020 and was treated with anticoagulation for 6 months, depression, GERD, asthma presented to ER with complaint of mechanical fall and left shoulder pain. Left humerus x-ray showed Acute comminuted displaced proximal left humeral fracture CT head showed no acute intracranial abnormality Continue pain control Plan to go to OR today Daughter said that before the fall pt was able to walk to the mailbox with no chest discomfort and SOB Denies any chest pain, palpitation, dizziness and SOB CXR showed no acute process EKG showed no acute ischemic changes Surgery risks discussed with patient and daughter on admission such as bleeding, blood clot, infection, heart attack and even Ortho will explain the procedure in details and obtained consent Pt is stable to proceed with the procedure Keep NPO for now (3) Hyponatremia: Na: 125. Was 130 in 10/2020 na 130 today Continue monitor BMP (4) HTN (hypertension): Continue carvedilol, hydralazine, valsartan Hold HCTZ, spironolactone and torsemide and reeval tomorrow (5) Seizure disorder: Seizure precautions Continue Tegretol Ativan as needed seizure (6) History of pulmonary embolism: History right LLE DVT and PE in 02/2020. Was thought secondary to being sedentary with pandemic. Was treated with anticoagulant for 6 months (7) Asthma: No signs of acute exacerbation Albuterol as needed (8) Hypothyroidism: Continue levothyroxine (9) Depression: Continue venlafaxine DVT Prophylaxis -SCDs for now Full Code as per discussion with pt Follows with Dr Valdivia for routine care Discharge Plan Discharge Items Patient Disposition: Home - Self-Care Reason For Visit: HUMERUS FX Discharge Diagnosis: Closed fracture of left proximal humerus: Condition on Discharge: Fair Activity: Resume your previous activity Non-emergency contact: Primary Care Provider and Surgeon Call non-emergency contact if: you have any medication questions Follow-up/Referrals: Rigoberto Valdivia MD [Primary Care Provider] - Diet: Heart Healthy Addtl Attending Provider Instructions: Follow up with your primary care provider dr. Valdivia within 1 week (office will call you for the follow ) Follow up with orthopedic Dr. Avila in 2 weeks Check CBC in 1 week to monitor your hemoglobin Check BMP in 1 week to monitor your electrolytes Fall precaution Do not drive or operate any machine while on narcotic Please hold next dose of narcotic if you become drowsy and lethargy [employer] Provider Instructions: ORTHOPEDIC INSTRUCTIONS Activity Recommendations: May use your hand and wrist. You may do range of motion with your elbow. Otherwise, stay in the sling at all times. Medications: Take your oral narcotic pain medications as needed. Dressing Care: Leave the Silverlon dressing in place for 7 days. After 7 days you may remove the dressing. If the incision is not draining then you may leave the red open to air. If there is a little bit of drainage or if the red are getting stuck on your clothing then cover the incision with a dry dressing. The red will be removed at your 2 week follow-up appointment. Showering: You may shower with the Silverlon dressing in place. Do not let the shower spray hit the dressing directly. Pat the Silverlon dressing dry. If the dressing becomes wet underneath, then simply remove the dressing. Keep the incision dry until you are 7 days out from the day of surgery. After 7 days you may remove the Silverlon dressing and shower with the red exposed. Let soapy water run over the red and pat them dry. Do not scrub or soak the incision. Things To Watch For: 1. Drainage from the incision site that occurs more than one week after your surgery. 2. Increased redness at the incision site. 3. Fever above 102 degrees Fahrenheit. 4. Unusual chest pain or shortness of breath. 5. Call [facility] at with any of the above problems Follow-Up Visit: Follow-up with Dr. Avila's PA (Zeeshan Carranza) 2-3 weeks after your day of surgery. He will remove your red and answer any questions. If you have any additional questions or concerns, Dr Avila is usually in the office at the same time and will be available Please call the office to set up an appointment time that works for you Pending Studies at Discharge: No Stand-Alone Forms: My [facility] Slide, Opioid Pain Management, Smoking Cessation Medications and DC Order Prescriptions: New docusate sodium 100 mg Capsule 100 mg PO BID PRN (Reason: constipation) Qty: 30 RF: 0 oxycodone 5 mg Tablet 5 mg PO Q8H PRN (Reason: severe pain (scale score 7-10)) Qty: 15 RF: 0 ondansetron HCl [Zofran] 4 mg tablet 4 mg PO Q8H PRN (Reason: nausea and vomiting) Qty: 30 RF: 0 Continued carbamazepine 100 mg tablet,chewable 200 mg PO BID 90 Days Qty: 360 RF: 1 albuterol sulfate 90 mcg/actuation HFA aerosol inhaler 2 puff inhalation Q6 PRN (Reason: sob/wheezing) RF: 0 spironolactone 25 mg tablet 25 mg PO DAILY RF: 0 levothyroxine 100 mcg tablet 100 mcg PO [id number] RF: 0 albuterol sulfate 2.5 mg /3 mL (0.083 %) solution for nebulization 2.5 mg inhalation DIRECTED PRN (Reason: Wheezing) RF: 0 calcium carbonate 600 mg calcium (1,500 mg) tablet 600 mg PO BID RF: 0 cholecalciferol (vitamin D3) 1,000 unit capsule 1,000 units PO DAILY RF: 0 venlafaxine [Effexor XR] 150 mg capsule,extended release 24hr 150 mg PO DAILY RF: 0 torsemide 20 mg tablet 20 mg PO DAILY PRN (Reason: fluid build up) RF: 0 hydralazine 25 mg tablet 25 mg PO TID RF: 0 omeprazole 40 mg capsule,delayed release(DR/EC) 40 mg PO DAILY RF: 0 levothyroxine 100 mcg tablet 50 mcg PO WK RF: 0 valsartan [Diovan] 320 mg tablet 320 mg PO DAILY RF: 0 lorazepam 0.5 mg Tablet 0.5 mg PO TID PRN (Reason: Anxiety) RF: 0 betamethasone dipropionate 0.05 % Ointment 1 applic TOPICAL BID PRN (Reason: FLAREUPS) RF: 0 Prolia 60 mg/mL Syringe 60 mg SUBCUT .[id number] RF: 0 hydrochlorothiazide 25 mg tablet 25 mg PO DAILY RF: 0 carvedilol 6.25 mg tablet 6.25 mg PO BID RF: 0 Discharge Orders: Discharge Order (Routine); Ordered 02/19/21 Ordered By: Paul Wyman/Other Patient Handouts: DVT Post Op Prevention, Hypotension Dc Admission Data Admit Date/Time: 02/17/21 17:19 Attending Provider: Paul Boykin Admit Provider: Paul Boykin Primary Care Provider: Rigoberto Valdivia Other Providers: Paul Boykin ; Zeeshan Avila ; Brannon Davis Other Interventions: Discharge Summary Assessment (RN) Last Done: 02/19/21 15:43
== END 2021-02-19 16:43 | disposition home or self-care (01) | DRG 493 ==
LOC: ED 13:51 → 3N 17:19
DX: I10 Essential (primary) hypertension; S42.202A Unspecified fracture of upper end of left humerus, initial encounter for closed fracture; Z86.718 Personal history of other venous thrombosis and embolism; J45.909 Unspecified asthma, uncomplicated; Y92.018 Other place in single-family (private) house as the place of occurrence of the external cause; G40.909 Epilepsy, unspecified, not intractable, without status epilepticus; F32.9 Major depressive disorder, single episode, unspecified; Z86.711 Personal history of pulmonary embolism; E87.1 Hypo-osmolality and hyponatremia; S09.90XA Unspecified injury of head, initial encounter; M77.8 Other enthesopathies, not elsewhere classified; E03.9 Hypothyroidism, unspecified; Z88.8 Allergy status to other drugs, medicaments and biological substances; W10.9XXA Fall (on) (from) unspecified stairs and steps, initial encounter; Z88.5 Allergy status to narcotic agent